=== PATIENT | male | born 1960 | race Caucasian/White ===

== ENCOUNTER 2024-05-06 14:04 | Inpatient (IN) | payer OTHER, SELFPAY ==
[2024-05-06] VITALS (8 sets, daily range): BP systolic 110–149; BP diastolic 60–76; BMI 29.4; BMI 27.6
--- NOTE | 2024-05-06 11:36 | EDRN ---
Jolanta Wesley PA in room w/pt at this time.
--- NOTE | 2024-05-06 12:12 | ED.GENMED ---
History of Present Illness
General
Chief Complaint: Skin Problem
Time Seen by Provider: 05/06/24 11:32
History of Present Illness
History of Present Illness:
64-year-old male with history of prior DVT currently on anticoagulation presents the emergency department for evaluation of worsening left leg swelling. He notes that he had a large blister formed to the leg as the swelling increased and this
blister recently ruptured. He was started on antibiotics earlier this week at urgent care but feels the symptoms are worsening. He reports mild discomfort but no numbness. No fevers or chills.
Review of Systems
Review of Systems
Allergies reviewed?: Yes
All Other Systems: ROS reviewed and negative except as documented in HPI and ROS
Phy Exam
Physical Exam
Physical Exam:
GEN: Well appearing, NAD, WDWN
HEENT: Oral mucosa moist, no scleral icterus
Cardiac: Regular rate
Lung: No respiratory distress, no tachypnea
MSK: No gross deformity or injuries
Skin: Good color, no pallor or jaundice. Severe swelling left lower extremity with copious serous discharge. There is a large superficial ulceration with erythematous tissue at the base, malodorous discharge noted
Neuro: AO x3, moves all extremities freely
Psych: Calm, cooperative
Course
Orders/Labs/Results
Orders:
Orders
05/06/24 11:42
CeFAZolin 2 GRAM [Ancef] 2 grams in 10 ml IV NOW
05/06/24 12:11
Complete Blood Count/With Diff Urgent
05/06/24 12:12
Comprehensive Metabolic Panel Urgent
05/06/24 13:27
Lower Ext Arterial & NIC US [ Perip Art LOWER Ext w NIC] Routine
Comment:
Reason For Exam: bilateral lower extremity wounds
Peripheral Venous Lwr Ext Bilat US [ Perip Venous LOWER Ext Willy] Urgent
Comment:
Reason For Exam: lower extremity edema
05/06/24 13:29
Admit/Transfer Patient As Directed
Co-Sign Provider:
Level of Care: Inpatient admission
Assign to:: Medical/Surgical
Physician / Group: [facility]
Diagnosis: LLE Cellulitis
Reason for Hospitalization: IV abx
Expected length of stay greater than two midnights?: Yes
ELOS- Estimated Length of Stay in days: 3
I certify the patient meets the requirements for IP care: Yes
PRN Pain Medication Management As Directed
May give lesser potent ordered pain med per pt: Yes
preference::
Protocol:: Medication orders for pain may be administered in a
manner that supports deferring to patient preference
when the pt is:
- Requesting an ordered lesser potent pain medication.
Least to most potent pain medications are defined
as: acetaminophen < NSAID < tramadol < opioids
(morphine, oxycodone, hydromorphone).
- Requesting a lesser dose of the same medication IF
ORDERED.
- Requesting a less intrusive route of administration
if both routes are prescribed by the provider (PO <
IV).
05/06/24 13:31
Code Status As Directed
Resuscitation Status: Full Code
Abnormal Lab Results
05/06/24 05/06/24
12:11 12:12
RBC 3.52 L 10^6/uL
(4.70-6.10)
MCV 114.5 H fL
(80.0-94.0)
MCH 41.8 H pg
(27.0-31.0)
Plt Count 91 L 10^3/uL
(130-400)
Absolute Lymphs (auto) 1.1 L 10^3/uL
(1.2-3.4)
Absolute Monos (auto) 0.7 H 10^3/uL
(0.1-0.6)
Immature Gran % 0.7 H %
(0-0.5)
Lymphocytes % 20.0 L %
(20.5-51.1)
Monocytes % 12.1 H %
(1.7-9.3)
Chloride 97 L mmol/L
(98-107)
BUN 6 L mg/dl
(9-20)
Creatinine 0.6 L mg/dL
(0.7-1.3)
Glucose 106 H mg/dl
(70-99)
AST 99 H U/L
(17-59)
ALT 91 H U/L
(0-50)
05/06/24 12:11
05/06/24 12:12
Vital Signs
Initial and Last Documented VS:
Initial Vital Signs
Temp Pulse Resp BP Pulse Ox
98.2 F 82 16 128/74 98
05/06/24 11:16 05/06/24 11:16 05/06/24 11:16 05/06/24 11:16 05/06/24 11:16
Last Documented Vital Signs
Temp Pulse Resp BP Pulse Ox
98.2 F 75 16 110/60 97
05/06/24 11:16 05/06/24 13:17 05/06/24 13:17 05/06/24 13:17 05/06/24 13:17
MDM/Problems Addressed
MDM/Problems Addressed:
Patient with severe lower extremity swelling and cellulitis due to a ulcerated wound, will admit for IV antibiotics and wound consultation
*Critical Care Note
Total Time (30-74mins, 75-104mins- exclusive of procedures): Not Applicable
ED Attending Note
-
Portions of this chart may have been created with voice recognition software.� Occasional wrong word or��sound alike� substitutions may have occurred due to the inherent limitations of voice recognition software.
Discharge Plan
Departure
Patient Disposition: Admit
Date of Disposition: 05/06/24
Time of Disposition: 13:08
Presentation/result/management discussed w/ accepting MD/DO: Hospitalist
Discharge Problem:
Cellulitis of left leg
Prescriptions:
No Action
acetaminophen [Tylenol] 325 mg Tablet
650 mg PO DAILY
levothyroxine [Synthroid] 88 mcg Tablet
88 mcg PO DAILY
cephalexin 500 mg Capsule
500 mg PO QID
Rx Instructions:
FOR 10 DAYS STARTING 05/02/24
Eliquis 5 mg Tablet
5 mg PO BID
Patient Comments:
05/06/24- PATIENT CURRENTLY HAVE BOTTLES FROM HIS NEIGHBOR THAT GAVE THEM TO PATIENT SINCE HE LOST HIS INSURANCE, NO ECW ABOUT START OF MED
Referrals:
Deidre Funk PA-C [Family Provider] -
Interventions
Interventions:
*Risk Screen - Suicide Last Done: 05/06/24 12:00
*General Assessment Last Done: 05/06/24 12:00
*Neglect/Abuse Screening Last Done: 05/06/24 12:00
*ED- Fall Risk Assessment Last Done: 05/06/24 12:00
*ED COVID-19 Vaccine History Last Done: 05/06/24 12:00
ED-Skin Assessment Last Done: 05/06/24 12:00
Discharge Date and Time
Print Language: MONGOLIAN
[2024-05-06] MEDS: ANCEF 10 IV (12:16)
[2024-05-06 12:29] LABS: ALT (SGPT) 91 U/L (0-50); AST (SGOT) 99 U/L (17-59); Albumin 4.6 g/dl (3.5-5.0); Alkaline Phosphatase 70 U/L (38-126); Blood Urea Nitrogen 6 mg/dl (9-20); Calcium 9.2 mg/dl (8.4-10.2); Carbon Dioxide 25 mmol/L (22-30); Chloride 97 mmol/L (98-107); Glucose 106 mg/dl (70-99); Potassium 3.9 mmol/L (3.5-5.1); Sodium 136 mmol/L (135-145); Total Bilirubin 1.3 mg/dl (0.2-1.3); Total Protein 7.1 g/dl (6.3-8.2); eGFR > 60.00
[2024-05-06 12:36] LABS: % Basophils 0.7 % (0-2); % Eosinophils 0.5 % (0-6); % Immature Granulocytes 0.7 % (0-0.5); % Monocytes 12.1 % (1.7-9.3); Absolute Lymphocytes 1.1 10^3/uL (1.2-3.4); Absolute Monocytes 0.7 10^3/uL (0.1-0.6); Absolute Neutrophils 3.7 10^3/uL (1.4-6.5); Hematocrit 40.3 % (39.0-52.0); Hemoglobin 14.7 g/dL (13.0-18.0); Mean Corp Hgb Conc. 36.5 g/dL (33.0-37.0); Mean Corpuscular Hgb 41.8 pg (27.0-31.0); Mean Corpuscular Volume 114.5 fL (80.0-94.0); Nucleated Red Blood Cells % 0 % (-); Red Blood Cell Count 3.52 10^6/uL (4.70-6.10); Red Cell Dist. Width 13.7 % (11.5-14.5); White Blood Cell Count 5.6 10^3/uL (4.8-10.8)
--- NOTE | 2024-05-06 12:38 | WOUNDNOTE ---
SKIN/WOUND Care note: Pt identified by name and . Bilateral lower legs.
R lower anterior leg
R lower lateral leg
R lateral foot
Top of R foot
R medial foot and sole of foot
L medial foot
Top of L foot
Lateral L foot
L lower leg from medial aspect
L lower leg and ankle medial-anterior aspect
L lower leg lateral aspect
L lower leg lateral aspect
[2024-05-06 13:02] LABS: Mean Platelet Volume 9.2 fL (7.4-10.4); Platelet Count 91 10^3/uL (130-400)
--- NOTE | 2024-05-06 13:15 | EDRN ---
Olesya Nesbitt PA in to see pt at thistime.
--- NOTE | 2024-05-06 13:35 | HPS.HSE ---
Family Physician
-
Family Physician: Deidre Funk
Chief Complaint
-
Redness and Swelling of Left Lower Extremity
History of Present Illness
Patient is a64 y/o male past medical history of DVT who presents with redness and swelling of the left lower extremity. Patient reports he developed a large blister on his left leg than burst about a week ago. Over the past weekend (5-6 days ago)
he was walking a lot and noticed a lot of drainage coming from the prior blister site. He went to urgent care on Thursday (4 days ago) at which time he was started cephalexin. He denies fevers, sweats or chills.
Medical History
Past Medical History
Past Medical History: Reports Other
Additional Past Medical History:
Left Lower Extremity DVT
Hypothyroidism
Past Surgical History: Reports Other
Additional Past Surgical History:
Tonsillectomy
Hernia Repair
Social History
Tobacco: Non-smoker
Alcohol: Daily (A few glasses of wine nightly)
Family History
Family History: Not pertinent
Allergies / Home Medications
Allergies reflects when Allergies were last updated in [facility].
Home Medications with original date entered in [facility]
Allergy/Medication List:
Allergies
Allergy/AdvReac Type Severity Reaction Status Date / Time
No Known Allergies Allergy Unverified 05/06/24 11:10
Home Medications
acetaminophen 325 mg tablet (Tylenol) 650 mg PO DAILY 05/06/24
apixaban 5 mg tablet (Eliquis) 5 mg PO BID 05/06/24
cephalexin 500 mg capsule 500 mg PO QID 05/06/24
levothyroxine 88 mcg tablet (Synthroid) 88 mcg PO DAILY 05/06/24
Review of Systems
-
A 12 point ROS was completed and negative except as noted: Yes
Constitutional: Denies Fever or Chills
Respiratory: Denies Cough or Trouble Breathing
Cardiac: Denies Chest Pain or Palpitations
Physical Exam
Vital Signs
Vital Signs
Temp Pulse Resp BP Pulse Ox
98.2 F 75 16 110/60 97
05/06/24 11:16 05/06/24 13:17 05/06/24 13:17 05/06/24 13:17 05/06/24 13:17
Physical Exam
General: Comfortable and Conversant
HEENT: Anicteric and Moist mucous membranes
Respiratory: Clear and Non Labored Respirations
Cardiac: S1/S2 and Regular Rhythm
GI: Soft and Non Tender
Musculoskeletal: No Clubbing, No Cyanosis and Other (Bilateral Lower extremity)
Skin: Other (Bilateral Toes erythematous, left lower extremity moderate erythema, previous blister site wrapped in CRISTOPHER; wound care pictures review)
Neuro: Awake, Alert and Oriented
Psych: Calm
Laboratory Results
-
05/06/24 12:11
05/06/24 12:12
Laboratory Results
Total Bilirubin 1.3 mg/dl (0.2-1.3) 05/06/24 12:12
AST 99 U/L (17-59) H 05/06/24 12:12
ALT 91 U/L (0-50) H 05/06/24 12:12
Alkaline Phosphatase 70 U/L (38-126) 05/06/24 12:12
Data Reviewed
-
Lab Data: Labs Reviewed by me
Impression/Plan
-
Left Lower Extremity Cellulitis, concern for underlying vascular insufficiency
-Transition to Unasyn as patient has been on cephalexin for the past 4 days
-Consult Wound Care
-Check Venous and Arterial US with NIC
Lower Extremity DVT
-Patient reports he is currently getting the Eliquis from a friend
-Hold Eliquis should patient require debridement of wound
Hypothyroidism
-Continue levothyroxine
Alcohol Use Disorder
-Patient reports daily wine
-Continue thiamine and folic acid
-Monitor for symptoms of withdrawal
DVT proph: Lovenox until Eliquis is resumed
Code Status: Full Code
--- NOTE | 2024-05-06 13:44 | W.PN.UPDATE ---
Update Note
Progress Note Update
This is an addendum to the H&P written by Cindy Henley on 05/06/2024.� Patient seen and examined independently with PA.
64-year-old male past medical history of prior DVT left leg inconsistently on Eliquis presenting with left leg swelling with large left calf wound foul-smelling and erythema and swelling of the toes bilaterally.
Labs show transaminitis.�
Concern for potential arterial insufficiency.� Check venous and arterial ultrasound with NIC.� Check wound culture.� Unasyn.� Wound care.� Hold Eliquis for now, pending potential debridement.�
Transaminitis likely secondary to alcohol use/hepatic steatosis.� Continue to monitor.
Alcohol withdrawal protocol.
--- NOTE | 2024-05-06 14:11 | EDRN ---
Due to malodorous wounds that can be noted outside of room w/door closed this RN requested a private room for pt. This RN requested through ED facilities clerk and admissions.
[2024-05-06] MEDS: UNASYN IV ×2 (17:43→23:32)
[2024-05-06] MEDS: LOVENOX 40 MG SC (17:44)
[2024-05-06] MEDS: THIAMINE INJECTION 200 MG IV (20:24)
[2024-05-07] MEDS: SYNTHROID 88 MCG PO (05:25)
[2024-05-07] MEDS: UNASYN IV (05:25)
[2024-05-07 06:25] LABS: Hematocrit 39.8 % (39.0-52.0); Hemoglobin 14.6 g/dL (13.0-18.0); Mean Corp Hgb Conc. 36.7 g/dL (33.0-37.0); Mean Corpuscular Hgb 42.3 pg (27.0-31.0); Mean Corpuscular Volume 115.4 fL (80.0-94.0); Platelet Count 87 10^3/uL (130-400); Red Blood Cell Count 3.45 10^6/uL (4.70-6.10); Red Cell Dist. Width 13.9 % (11.5-14.5); White Blood Cell Count 5.1 10^3/uL (4.8-10.8)
[2024-05-07 06:27] LABS: INR 1.16; PT 15.1 Sec (11.4-14.6)
[2024-05-07 06:28] LABS: APTT 32.7 Sec (23.4-35.0)
[2024-05-07 06:35] LABS: ALT (SGPT) 67 U/L (0-50); AST (SGOT) 68 U/L (17-59); Albumin 3.7 g/dl (3.5-5.0); Alkaline Phosphatase 66 U/L (38-126); Blood Urea Nitrogen 8 mg/dl (9-20); Calcium 8.9 mg/dl (8.4-10.2); Carbon Dioxide 30 mmol/L (22-30); Chloride 100 mmol/L (98-107); Estimated Creatinine Clearance 119 ml/min; GGTP 250 U/L (15-73); Glucose 104 mg/dl (70-99); Magnesium 2.3 mg/dl (1.6-2.3); Phosphorus 3.4 mg/dl (2.5-4.5); Potassium 4.1 mmol/L (3.5-5.1); Sodium 136 mmol/L (135-145); Total Bilirubin 2.3 mg/dl (0.2-1.3); Total Protein 6.3 g/dl (6.3-8.2); eGFR > 60.00
[2024-05-07 07:00] VITALS: BP 124/77
[2024-05-07 08:40] VITALS: BP 134/72; PULSE 71; O2SAT 100
[2024-05-07 08:50] VITALS: BP 134/72; PULSE 76; O2SAT 99
[2024-05-07] MEDS: THIAMINE INJECTION 200 MG IV ×2 (08:57→21:29)
[2024-05-07] MEDS: FOLVITE 1 MG PO (08:57)
--- NOTE | 2024-05-07 10:00 | W.PN.HOSP.TC ---
Today's Communication/Plan
-
See plan above
Assessment / Plan
Assessment / Plan
Left Lower Extremity purulent cellulitis
-Nonseptic criteria but purulence noted with malodor. Await culture data. Broaden antibiotics to vancomycin and cefepime until culture data is available.
-Wound care consult
Bilateral lower extremity edema predisposing to cellulitis
Clinically not in heart failure. No cardiopulmonary diagnosis.
Suspect bilateral venous stasis issues. Check echocardiogram and BNP.
To manage edema will start on Lasix which he is agreeable.
-Arterial ultrasound shows no evidence of PAD
Lower Extremity DVT
-Patient reports he is currently getting the Eliquis from a friend
-Continue with Eliquis
-Patient ultrasound on admission showed no evidence of DVT
Hypothyroidism
-Continue levothyroxine
Alcohol Use Disorder
-Patient reports daily wine
-Continue thiamine and folic acid
-Monitor for symptoms of withdrawal
Mild transaminitis without GI symptoms-patient made aware about LFT abnormality advised to hold alcohol intake and repeat in 2 weeks.
Thrombocytopenia-unknown if acute or chronic. No obvious evidence of external bleeding. Follow for now.
DVT proph: Lovenox until Eliquis is resumed
Code Status: Full Code
Discussed with RN
Total time spent on today's encounter was 52 minutes which included time spent in counseling the patient/family regarding diagnosis and treatment plan as listed above, goals of care, and symptom management. Case was discussed with nursing staff,
specialists, and care coordinators/case management. All labs and imaging personally reviewed by me. Remainder the time spent in detailed review of previous records, lab data, imaging, and other medical provider documentation.
Anticipated Discharge: > 48 hours
Subjective/Interval History
-
Date of Service: May 07, 2024
No fever chills.
Discomfort from the left leg.
No nausea vomiting.
Interval history
Remote history of DVT once but according to recommendation of hematology he was advised to continue with anticoagulation. Patient mention something about some deficiency warranting lifelong anticoagulation. He lost insurance so over the last 2
years he was not using Eliquis. He only went back on it in the last 2 weeks as he found some leftover eliquis bottles. He now has insurance and a new PCP.
Over the last few days he started noticed increasing lower extremity edema. Then he started to see oozing of fluid from the left leg. A blister formed which ruptured in the left leg. He started to have foul smell to the discharge.
Bilateral lower extremity edema seems to be persistent without changes in position. Denies prior history of lung or heart disease.
Admits to having at least couple of glasses of wine every day. He thinks he should cut back and feels sometimes excessive. No prior history of alcohol withdrawal issues including seizures. Denies prior history of liver disease.
Objective Data
-
Labs:
Laboratory Results
05/07/24
05:41
WBC 5.1
Hgb 14.6
Hct 39.8
Plt Count 87 L
PT 15.1 H
INR 1.16
APTT 32.7
Sodium 136
Potassium 4.1
Chloride 100
Carbon Dioxide 30
BUN 8 L
Creatinine 0.7
Glucose 104 H
Calcium 8.9
Total Bilirubin 2.3 H D
AST 68 H
ALT 67 H
Alkaline Phosphatase 66
Vital Signs:
Vital Signs
Temp Pulse Resp BP Pulse Ox
98.6 F 74 16 124/77 97
05/07/24 07:00 05/07/24 07:00 05/07/24 07:00 05/07/24 07:00 05/07/24 07:00
Review of Systems
-
Constitutional: Denies Fever
Respiratory: Denies Trouble Breathing
Cardiac: Denies Chest Pain or Palpitations
Abdomen/GI: Denies Abdominal Pain, Nausea or Vomiting
Neuro: Denies Dizzy
Physical Exam
-
General: Comfortable
HEENT: Moist Mucous Membranes
Respiratory: Non Labored Respirations; Negative Wheezes, Crackles or Accessory Resp Muscle Use
Cardiac: Regular Rhythm and S1/S2; Negative Murmur, JVD or Tachycardic
GI: Soft, Nontender and No Hepatosplenomegaly
Musculoskeletal: Edema, Left Upper Extrem (Superficial open wound on the left lateral mid leg. Malodorous discharge with purulence. The area with redness, tenderness and increased warmth.) and Edema, Right Lower Extrem (Swelling with chronic
stasis changes)
Neuro: AO x 3
Psych: Calm
Data Reviewed
-
Labs: Labs Reviewed by me
--- NOTE | 2024-05-07 10:38 | PHA.VAN.IN ---
Assessment
- Assessment
Renal Function may be Overestimated due to: age
Concomitant Antimicrobials: cefepime
AUC Dosing Plan
- Dosing Variables
Dosing Weight (kg): 94.971
Dosing CrCl (ml/min): 100
Vd coefficient (L/kg): 0.7
- Empiric Dosing
Initial / Loading Dose: 1500mg
Maintenance Regimen: 1500mg q12h
Estimated AUC (mcg*h/mL): 550
Estimated Peak (mcg*h/mL): 34.7
Estimated Trough (mcg/ml): 13.9
Estimated Half Life (H): 7.9
- Monitoring
No levels ordered at this time: consider at steady state
Pharmacokinetics Vancomycin I
- -
Patient Age: 64
Patient Sex: Male
Vancomycin Day #: 1
Indication: Skin And Soft Tissue
Requesting Provider: Dr. Cook
Pertinent Antimicrobial Allergies:
nkda
Height / Weight:
Height 6 ft 1 in
Actual Weight 94.971 kg
IBW in kkg
- Vital Signs / Lab Results
Temp Pulse Resp BP Pulse Ox
98.6 F 74 16 124/77 97
05/07/24 07:00 05/07/24 07:00 05/07/24 07:00 05/07/24 07:00 05/07/24 07:00
Lab Results - Hematology
05/06/24 05/07/24
12:11 05:41
WBC 5.6 5.1
Lab Results - Chemistry
05/06/24 05/07/24
12:12 05:41
BUN 6 L 8 L
Creatinine 0.6 L 0.7
Estimated Creat Clear 119
Albumin 4.6 3.7
[2024-05-07] MEDS: VANCOCIN 530 MG IV ×2 (10:48→21:28)
[2024-05-07] MEDS: LASIX 40 MG PO (10:48)
[2024-05-07 12:11] LABS: NT-proBNP 172 pg/ml
[2024-05-07] MEDS: STERILE WATER FOR INJECTION 10 ML IV ×2 (12:47→21:29)
[2024-05-07] MEDS: MAXIPIME 1000 MG IV ×2 (12:48→21:32)
--- NOTE | 2024-05-07 14:13 | CM ---
MEt with patient who is admitted from home. [facility] [address] to get to it.
He does not use DME, No history of SNF or VNA.
He works for [employer] and has prescription drug benefits now.
He has wound care needs.
He is walking around room.
PLAN: home with f/u at a wound care center.
[2024-05-07 16:44] VITALS: BP 132/75
[2024-05-07] MEDS: ELIQUIS 5 MG PO (21:28)
[2024-05-07 23:00] VITALS: BP 130/71
[2024-05-08] MEDS: SYNTHROID 88 MCG PO (04:28)
[2024-05-08] MEDS: STERILE WATER FOR INJECTION 10 ML IV ×3 (04:28→20:56)
[2024-05-08] MEDS: MAXIPIME 1000 MG IV ×3 (04:28→20:56)
[2024-05-08 04:42] VITALS: BMI 27.1
[2024-05-08 06:50] LABS: Hematocrit 40.2 % (39.0-52.0); Hemoglobin 14.6 g/dL (13.0-18.0); Mean Corp Hgb Conc. 36.3 g/dL (33.0-37.0); Mean Corpuscular Volume 115.5 fL (80.0-94.0); Mean Platelet Volume 8.7 fL (7.4-10.4); Platelet Count 80 10^3/uL (130-400); Red Blood Cell Count 3.48 10^6/uL (4.70-6.10); Red Cell Dist. Width 13.8 % (11.5-14.5); White Blood Cell Count 4.6 10^3/uL (4.8-10.8)
[2024-05-08 06:57] LABS: ALT (SGPT) 55 U/L (0-50); AST (SGOT) 52 U/L (17-59); Albumin 3.8 g/dl (3.5-5.0); Alkaline Phosphatase 62 U/L (38-126); Blood Urea Nitrogen 7 mg/dl (9-20); Calcium 8.8 mg/dl (8.4-10.2); Carbon Dioxide 25 mmol/L (22-30); Chloride 101 mmol/L (98-107); Estimated Creatinine Clearance 119 ml/min; Glucose 103 mg/dl (70-99); Potassium 3.6 mmol/L (3.5-5.1); Sodium 137 mmol/L (135-145); Total Protein 6.3 g/dl (6.3-8.2); eGFR > 60.00
[2024-05-08 07:00] VITALS: BP 116/70
--- NOTE | 2024-05-08 07:45 | PHA.VAN.FU ---
Vancomycin Assessment / Plan
- Assessment
Renal Function: Stable
WBC's are: Trending Down
In the past 24 hrs, patient has been: Afebrile
Concomitant Antimicrobials: CEFEPIME
- Dosing Plan
Continue: 1500MG Q12H
- Monitoring Plan
Peak Level: 05/08 @2100
Trough Level: 05/09 @0530
- Follow Up
Pharmacy will continue to follow.
Vancomycin Follow UP
- -
Patient Age: 64
Patient Sex: Male
Vancomycin Day #: 2
Indication: Skin And Soft Tissue
Requesting Provider: Dr. Cook
Pertinent Antimicrobial Allergies:
nkda
Height / Weight:
Height 6 ft 1 in
Actual Weight 93.043 kg
IBW in kkg
- Vital Signs / Lab Results
Temp Pulse Resp BP Pulse Ox
97.9 F 68 20 130/71 99
05/07/24 23:00 05/07/24 23:00 05/07/24 23:00 05/07/24 23:00 05/07/24 23:00
Lab Results - Hematology
05/06/24 05/07/24 05/08/24
12:11 05:41 06:07
WBC 5.6 5.1 4.6 L
Lab Results - Chemistry
05/06/24 05/07/24 05/08/24
12:12 05:41 06:07
BUN 6 L 8 L 7 L
Creatinine 0.6 L 0.7 0.7
Estimated Creat Clear 119 119
Albumin 4.6 3.7 3.8
Microbiology Results
05/06/24 Unknown Gram Stain - Preliminary
Leg - Left
[2024-05-08] MEDS: THIAMINE INJECTION 200 MG IV ×2 (09:24→20:56)
[2024-05-08] MEDS: FOLVITE 1 MG PO (09:24)
[2024-05-08] MEDS: LASIX 40 MG PO (09:24)
[2024-05-08] MEDS: VANCOCIN 530 MG IV ×2 (09:25→17:52)
[2024-05-08] MEDS: ELIQUIS 5 MG PO ×2 (11:14→20:56)
--- NOTE | 2024-05-08 12:42 | W.PN.HOSP.TC ---
Today's Communication/Plan
-
See note above
Assessment / Plan
Assessment / Plan
Left Lower Extremity purulent cellulitis
-Nonseptic by criteria but purulence noted with malodor. Await culture data. Continue with vancomycin and cefepime until culture data is available.
-Wound care consult
Bilateral lower extremity edema predisposing to cellulitis
Clinically not in heart failure. No cardiopulmonary diagnosis.
Suspect bilateral venous stasis issues. Check echocardiogram and BNP.
Continue with Lasix for edema management
-Arterial ultrasound shows no evidence of PAD
Lower Extremity DVT
-Patient reports he is currently getting the Eliquis from a friend
-Continue with Eliquis
-Patient ultrasound on admission showed no evidence of DVT
Hypothyroidism
-Continue levothyroxine
Alcohol Use Disorder
-Patient reports daily wine
-Continue thiamine and folic acid
-Monitor for symptoms of withdrawal
Mild transaminitis without GI symptoms-patient made aware about LFT abnormality advised to hold alcohol intake . Check ultrasound of the abdomen and hepatitis screen. If negative will hold alcohol for couple of weeks and repeat liver function test.
Thrombocytopenia-unknown if acute or chronic. No obvious evidence of external bleeding. Follow for now.
Diarrhea-new onset-check for C. difficile and norovirus
DVT proph: Lovenox until Eliquis is resumed
Code Status: Full Code
Discussed with RN
Total time spent on today's encounter was 52 minutes which included time spent in counseling the patient/family regarding diagnosis and treatment plan as listed above, goals of care, and symptom management. Case was discussed with nursing staff,
specialists, and care coordinators/case management. All labs and imaging personally reviewed by me. Remainder the time spent in detailed review of previous records, lab data, imaging, and other medical provider documentation.
Anticipated Discharge: > 48 hours
Subjective/Interval History
-
Date of Service: May 08, 2024
Feels his lower extremity edema is getting better with Lasix. He is urinating more.
The left leg pain is also getting better. No fever chills.
The started noticed that his stools are quite frequent especially today. Almost every hour. No nausea vomiting. No abdominal pain.
He tells me that is going to quit alcohol going forward to improve his health.
Objective Data
-
Labs:
Laboratory Results
05/08/24
06:07
WBC 4.6 L
Hgb 14.6
Hct 40.2
Plt Count 80 L
Sodium 137
Potassium 3.6
Chloride 101
Carbon Dioxide 25
BUN 7 L
Creatinine 0.7
Glucose 103 H
Calcium 8.8
Total Bilirubin 2.0 H
AST 52
ALT 55 H
Alkaline Phosphatase 62
Vital Signs:
Vital Signs
Temp Pulse Resp BP Pulse Ox
97.9 F 69 18 116/70 100
05/08/24 07:00 05/08/24 07:00 05/08/24 07:00 05/08/24 07:00 05/08/24 07:00
I&O
05/07/24 05/08/24 05/09/24
06:59 06:59 06:59
Intake Total 1080 / 1080
Balance 1080 / 1080
Review of Systems
-
Constitutional: Denies Fever
Respiratory: Denies Trouble Breathing
Cardiac: Denies Chest Pain
Abdomen/GI: Reports Diarrhea; Denies Abdominal Pain, Nausea or Vomiting
Neuro: Denies Dizzy
Physical Exam
-
General: No Apparent Distress
Respiratory: Non Labored Respirations; Negative Accessory Resp Muscle Use
GI: Soft and Nontender
Musculoskeletal: Edema, Right Lower Extrem (Improved) and Edema, Left Lower Extrem (Interesting)
Neuro: AO x 3
Psych: Calm
Data Reviewed
-
Labs: Labs Reviewed by me
[2024-05-08 15:00] VITALS: BP 106/70
[2024-05-08] MEDS: IMODIUM 2 MG PO (17:53)
[2024-05-08] MEDS: VISBIOME 1 CAP PO (17:54)
[2024-05-08 23:37] VITALS: BP 120/69
[2024-05-09] MEDS: STERILE WATER FOR INJECTION 10 ML IV ×2 (05:10→12:21)
[2024-05-09] MEDS: VANCOCIN 530 MG IV (05:10)
[2024-05-09] MEDS: SYNTHROID 88 MCG PO (05:10)
[2024-05-09] MEDS: MAXIPIME 1000 MG IV ×2 (05:10→12:21)
[2024-05-09 06:00] VITALS: BMI 26.8
[2024-05-09 06:38] LABS: Vancomycin Trough 15.6 ug/ml (5-20)
[2024-05-09 07:27] VITALS: BP 119/71
[2024-05-09] MEDS: VISBIOME 1 CAP PO (07:47)
[2024-05-09] MEDS: ELIQUIS 5 MG PO (07:47)
[2024-05-09] MEDS: LASIX 40 MG PO (07:48)
[2024-05-09] MEDS: FOLVITE 1 MG PO (07:48)
[2024-05-09] MEDS: THIAMINE INJECTION 200 MG IV (07:48)
[2024-05-09 08:48] LABS: % Basophils 0.9 % (0-2); % Eosinophils 1.3 % (0-6); % Immature Granulocytes 0.7 % (0-0.5); % Lymphocytes 23.5 % (20.5-51.1); % Monocytes 10.4 % (1.7-9.3); % Neutrophils 63.2 % (42.2-75.2); Absolute Basophils 0.1 10^3/uL (0-0.2); Absolute Eosinophils 0.1 10^3/uL (0-0.7); Absolute Lymphocytes 1.3 10^3/uL (1.2-3.4); Absolute Monocytes 0.6 10^3/uL (0.1-0.6); Absolute Neutrophils 3.5 10^3/uL (1.4-6.5); Hematocrit 41.4 % (39.0-52.0); Mean Corp Hgb Conc. 36.2 g/dL (33.0-37.0); Mean Platelet Volume 9.2 fL (7.4-10.4); Nucleated Red Blood Cells % 0 % (-); Platelet Count 96 10^3/uL (130-400); Red Blood Cell Count 3.57 10^6/uL (4.70-6.10); Red Cell Dist. Width 13.4 % (11.5-14.5); White Blood Cell Count 5.6 10^3/uL (4.8-10.8)
[2024-05-09] MEDS: IMODIUM 2 MG PO (09:13)
[2024-05-09 10:10] LABS: ALT (SGPT) 52 U/L (0-50); AST (SGOT) 58 U/L (17-59); Albumin 3.7 g/dl (3.5-5.0); Alkaline Phosphatase 59 U/L (38-126); Blood Urea Nitrogen 8 mg/dl (9-20); Calcium 9.3 mg/dl (8.4-10.2); Carbon Dioxide 22 mmol/L (22-30); Estimated Creatinine Clearance 119 ml/min; Glucose 92 mg/dl (70-99); Potassium 4.2 mmol/L (3.5-5.1); Sodium 137 mmol/L (135-145); Total Bilirubin 1.5 mg/dl (0.2-1.3); Total Protein 6.3 g/dl (6.3-8.2); eGFR > 60.00
[2024-05-09 11:46] LABS: Chloride 110 mmol/L (98-107)
--- NOTE | 2024-05-09 12:09 | W.PN.HOSP.TC ---
Addendum entered and electronically signed by Servando Bowden MD 05/09/24 14:15:
Echocardiogram with preserved EF. Discussed with patient and he is currently feeling better. Will transition to p.o. Augmentin at discharge. Patient will follow-up closely with PCP outpatient.
Time of discharge 36 minutes
Original Note:
Today's Communication/Plan
-
monitor vitals
see plan
cw abx
echo
possible dc later today if echo normal
Assessment / Plan
Assessment / Plan
Left Lower Extremity purulent cellulitis
-Nonseptic by criteria but purulence noted with malodor. cx data no growth. switch to Po abx
-Wound care consult; should follow up outpatient
Bilateral lower extremity edema predisposing to cellulitis
Clinically not in heart failure. No cardiopulmonary diagnosis.
Suspect bilateral venous stasis issues. Check echocardiogram pending; BNP not much elevated
Continue with Lasix for edema management
-Arterial ultrasound shows no evidence of PAD
Lower Extremity DVT
-Patient reports he is currently getting the Eliquis from a friend
-Continue with Eliquis
-Patient ultrasound on admission showed no evidence of DVT
Hypothyroidism
-Continue levothyroxine
Alcohol Use Disorder
-Patient reports daily wine
-Continue thiamine and folic acid
-Monitor for symptoms of withdrawal
Mild transaminitis without GI symptoms-patient made aware about LFT abnormality advised to hold alcohol intake . Ultrasound abdomen with fatty liver disease
Thrombocytopenia-unknown if acute or chronic. No obvious evidence of external bleeding. Follow for now.
Diarrhea-new onset- C. difficile and norovirus neg
improving
DVT proph: Eliquis
Code Status: Full Code
General: No Apparent Distress
Respiratory: Non Labored Respirations; Negative Accessory Resp Muscle Use
GI: Soft and Nontender
Musculoskeletal: Edema, Right Lower Extrem and Edema, Left Lower Extrem
Neuro: AO x 3
Psych: Calm
Anticipated Discharge: Today
Subjective/Interval History
-
Date of Service: May 09, 2024
denies pain
Objective Data
-
Labs:
Laboratory Results
05/09/24
07:59
WBC 5.6
Hgb 15.0
Hct 41.4
Plt Count 96 L
Sodium 137
Potassium 4.2
Chloride 110 H
Carbon Dioxide 22
BUN 8 L
Creatinine 0.7
Glucose 92
Calcium 9.3
Total Bilirubin 1.5 H
AST 58
ALT 52 H
Alkaline Phosphatase 59
Vital Signs:
Vital Signs
Temp Pulse Resp BP Pulse Ox
98.4 F 64 18 119/71 99
05/09/24 07:27 05/09/24 07:27 05/09/24 07:27 05/09/24 07:27 05/09/24 07:27
I&O
05/08/24 05/09/24 05/10/24
06:59 06:59 06:59
Intake Total 1080 / 1080 1620 / 1620
Balance 1080 / 1080 1620 / 1620
--- NOTE | 2024-05-09 12:28 | WOUNDNOTE ---
L LATERAL LOWER LEG
--- NOTE | 2024-05-09 12:29 | WOUNDNOTE ---
L LATERAL FOOT AND TOES
--- NOTE | 2024-05-09 12:30 | WOUNDNOTE ---
WON RN note: Patient admitted with cellulitis of L leg
See H&P for complete history. Lives alone, works full stack java developer.
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
Wound Location and type/assessment: Patient admitted with: L lateral lower leg with open large blister, pink base no odor after cleaning. Wound culture pending, + palpable pedal pulses. Compared to pictures of legs taken in ER, legs look improved.
R leg maldonado wound has healed, scabbed dorsal toes. L lateral foot with blanchable redness and plantar surface with small scab, no drainage. Patient admitted that he can't reach feet to wash properly. Poor hygiene evident and toe nails jagged.
Hemosiderin staining both legs and +1 edema to L leg. Student nurse assisted.
Appetite: Good.
Pressure redistribution devices in place: Accumax, patient is ad lara.
Plan: Moisturized legs with Vaseline after bathing legs and feet, mineral oil ordered. For L leg applied Vashe soak for 5 minutes then Xeroform and dry dressing with gricel wrap knee high. ABD pad placed over L lateral foot and plantar under gricel wrap.
Teaching done with patient regarding hygiene, wound care and compression. Patient states he has compression stockings at home that he can manage on his own. Encouraged patient to wash legs and feet daily then moisturize and elevate legs when
sitting. Will confirm orders with hospitalist and updated nurse.
Updated care plan and will follow as needed.
Note to case management of equipment requested for discharge: None.
Recommend follow up at wound care center upon discharge.
--- NOTE | 2024-05-09 14:22 | W.DCSUMMARY ---
Discharge Summary
Discharge Data
Date of Admission: 05/06/24
Date of Discharge: 05/09/24
-
Pending Results: No
Hospital Course
64-year-old male with past medical history of lower extremity DVT, hypothyroidism, alcohol use disorder came to the hospital with left lower extremity cellulitis. Patient did had some also on admission wound culture was done which initially did not
grow any bacteria. There was another culture that grew rare gram-negative rods and gram-positive cocci. Patient symptoms continue to improve on IV antibiotic which was later transitioned to p.o. Augmentin prior to discharge. He did had lower
extremity edema which was likely thought was secondary to bilateral venous stasis. Echocardiogram was done which showed preserved ejection fraction. BNP was also done which was not elevated. Patient also had mild transaminitis the ultrasound of
the abdomen was consistent with fatty liver disease. Once patient symptoms continue to improve, he was then discharged home with instructions to follow-up closely with all his physicians outpatient and to follow-up with wound care center outpatient.
Discharge Plan
-
Patient Disposition: Home (Routine Discharge)
Discharge Diagnosis/Procedures: Cellulitis
Lower extremity edema
Suspect venous insufficiency
Diet: As tolerated
Activity: As tolerated
Driving Restrictions: As prior to admission
Bathing Restrictions: None
Blood Work: BMP later this week or next week with primary care provider
Activity Restrictions/Additional Instructions:
Wound Care Instructions
L lateral leg: Can shower wash with soap and water, soak with Vashe on gauze for 5 minutes then remove and apply Xeroform, (*alginate if increased drainage), ABD pad and kerlix daily and prn drainage.
Mineral oil to legs and feet daily after bathing feet with soap and water
compression stocking knee high that have at home, apply in morning and remove at evening upon bedtime.
When sitting elevate legs
increase protein in diet
Follow up at wound care center call for an appointment.
Referrals:
Deidre Funk PA-C [Family Provider] - in less than 1 week
Prescriptions:
New
white petrolatum [Hydrophor] 42 % Ointment
1 applic topical DAILY Qty: 454 0RF
Lactobac/Bifidobac [Visbiome]
1 cap PO DAILY Qty: 0 0RF
amoxicillin-pot clavulanate 875-125 mg tablet
1 tab PO BID Qty: 16 0RF
Continued
acetaminophen [Tylenol] 325 mg Tablet
650 mg PO DAILY
levothyroxine [Synthroid] 88 mcg Tablet
88 mcg PO DAILY
Eliquis 5 mg Tablet
5 mg PO BID
Patient Comments:
05/06/24- PATIENT CURRENTLY HAVE BOTTLES FROM HIS NEIGHBOR THAT GAVE THEM TO PATIENT SINCE HE LOST HIS INSURANCE, NO ECW ABOUT START OF MED
Discontinued
cephalexin 500 mg Capsule
500 mg PO QID
Rx Instructions:
FOR 10 DAYS STARTING 05/02/24
Discharge Orders:
Discharge Patient (As Directed); Ordered 05/09/24
Ordered By: Servando Bowden
Discharge Date and Time
Discharge Date/Time: 05/09/24 17:56
Print Language: NIUEAN
--- NOTE | 2024-05-09 15:45 | PHA.VAN.FU ---
Vancomycin Assessment / Plan
- Assessment
Renal Function: Stable
WBC's are: WNL
In the past 24 hrs, patient has been: Afebrile
Concomitant Antimicrobials: cefepime
- Assessment - Trough Based Monitoring
Trough Value: 15.6
Peak was not drawn
Trough appeared to be drawn after dose was administered based on scan times - Discussed with adjunct nursing faculty and phlebotomy stated the level was collected before vancomycin infusion was actually started thus trough was collected before the dose
Trough drawn ~11.5H after previous dose
Difficult to assess trough without the peak (unable to determine AUC & half-life)
- Dosing Plan
Continue: Vanc 1500mg Q12H
- Monitoring Plan
Trough Level: 05/10 05:30 - if not discharged
Discharge plans noted and patient to be discharged on amoxicillin/clavulanate
Will hold off on dose adjustments at this time - repeat trough to assess for accumulation
- Follow Up
Pharmacy will continue to follow.
Vancomycin Follow UP
- -
Patient Age: 64
Patient Sex: Male
Vancomycin Day #: 3
Indication: Skin And Soft Tissue
Requesting Provider: Dr. Cook
Pertinent Antimicrobial Allergies:
nkda
Height / Weight:
Height 6 ft 1 in
Actual Weight 92.164 kg
IBW in kkg
- Vital Signs / Lab Results
Temp Pulse Resp BP Pulse Ox
98.4 F 64 18 119/71 99
05/09/24 07:27 05/09/24 07:27 05/09/24 07:27 05/09/24 07:27 05/09/24 07:27
Lab Results - Hematology
05/07/24 05/08/24 05/09/24
05:41 06:07 07:59
WBC 5.1 4.6 L 5.6
Lab Results - Chemistry
0305/08/24 05/09/24
05:41 06:07 07:59
BUN 8 L 7 L 8 L
Creatinine 0.7 0.7 0.7
Estimated Creat Clear 119 119 119
Albumin 3.7 3.8 3.7
Microbiology Results
05/06/24 Unknown Wound Culture - Preliminary
Leg - Left Gram negative bacilli
Staphylococcus species
Gram Stain - Preliminary
05/08/24 12:00 Wound Culture - Preliminary
Leg - Left No growth
Gram Stain - Preliminary
05/08/24 11:20 C. difficile GDH Antigen & Toxins - Final
Feces/Stool Negative for toxigenic C.difficile
- Final
Negative for Norovirus GI and GII.
05/06/24 18:02 MRSA Screen - Final
Nose No Methicillin Resistant Staphylococcus aureus isolated.
Therapeutic Drug Monitoring
Vancomycin Peak Cancelled 05/08/24 21:00
Vancomycin Trough 15.6 ug/ml (5-20) 05/09/24 05:21
[2024-05-09 16:07] VITALS: BP 113/67
[2024-05-09 18:42] LABS: Hepatitis C Antibody Negative (Negative)
[2024-05-09 19:08] LABS: Hepatitis B Surface Antigen Negative (Negative)
[2024-05-09 19:25] LABS: Hepatitis B Surface Antibody Negative
== END 2024-05-09 17:56 | disposition home or self-care (01) | DRG 603 ==
LOC: 3 WEST ACU 14:04
PROVIDERS: Internal Medicine; Physician Assistant; Physician Assistant Medical; ADMITTING PHYSICIAN Hospitalist; ATTENDING PHYSICIAN Internal Medicine; EMERGENCY PHYSICIAN Emergency Medicine; FAMILY PHYSICIAN Physician Assistant
DX: L03.116 Cellulitis of left lower limb (principal); I87.2 Venous insufficiency (chronic) (peripheral); E03.9 Hypothyroidism, unspecified; I87.8 Other specified disorders of veins; D69.6 Thrombocytopenia, unspecified; K76.0 Fatty (change of) liver, not elsewhere classified; F10.10 Alcohol abuse, uncomplicated; R19.7 Diarrhea, unspecified; Z86.718 Personal history of other venous thrombosis and embolism; Z79.890 Hormone replacement therapy; Z79.01 Long term (current) use of anticoagulants
CPT/HCPCS: 76700; 80053; 80202; 82977; 83735; 83880; 84100; 85025; 85027; 85610; 85730; 86706; 86803; 87070; 87077; 87147; 87205; 87324; 87340; 87449; 87798; 93306; 93922; 93925; 93970; 97162; 97166; 99285

== ENCOUNTER → 2024-05-20 07:56 | Outpatient (REF) | payer OTHER, SELFPAY | LOC: WOUND 07:56 | PROVIDERS: ATTENDING PHYSICIAN Surgery; FAMILY PHYSICIAN Physician Assistant | DX: I87.312 Chronic venous hypertension (idiopathic) with ulcer of left lower extremity (principal); L97.929 Non-pressure chronic ulcer of unspecified part of left lower leg with unspecified severity; I87.2 Venous insufficiency (chronic) (peripheral); Z79.01 Long term (current) use of anticoagulants | CPT/HCPCS: 99203 ==

== ENCOUNTER 2024-09-21 23:59 | Inpatient (IN) | payer OTHER, MEDICARE, SELFPAY ==
[2024-09-21 18:52] VITALS: BP 131/80
[2024-09-21 19:16] LABS: Hematocrit 43.0 % (39.0-52.0); Hemoglobin 15.7 g/dL (13.0-18.0); Mean Corp Hgb Conc. 36.5 g/dL (33.0-37.0); Mean Corpuscular Volume 111.7 fL (80.0-94.0); Nucleated Red Blood Cells % 0 % (-); Platelet Count 227 10^3/uL (130-400); Red Cell Dist. Width 15.3 % (11.5-14.5)
[2024-09-21 19:38] LABS: ALT (SGPT) 28 U/L (0-50); AST (SGOT) 33 U/L (17-59); Albumin 4.4 g/dl (3.5-5.0); Alkaline Phosphatase 79 U/L (38-126); Blood Urea Nitrogen 3 mg/dl (9-20); Calcium 8.9 mg/dl (8.4-10.2); Carbon Dioxide 22 mmol/L (22-30); Chloride 103 mmol/L (98-107); Glucose 98 mg/dl (70-99); Potassium 4.1 mmol/L (3.5-5.1); Sodium 139 mmol/L (135-145); Total Protein 7.6 g/dl (6.3-8.2); eGFR > 60.00
[2024-09-21 20:55] VITALS: BP 118/72
[2024-09-21 21:00] VITALS: BP 123/73; BMI 26.0
--- NOTE | 2024-09-21 21:29 | ED.GENMED ---
History of Present Illness
General
Chief Complaint: Skin Problem
Source: patient
Exam Limitations: none
Time Seen by Provider: 09/21/24 21:06
History of Present Illness
History of Present Illness:
64yoM with a history of DVT on Eliquis and hypothyroidism presenting for evaluation of foot redness and swelling. Symptoms began about a week ago. He took his compression stockings off last week after wearing them for 2 weeks. He noticed that
both of his feet were red and swollen. He also noticed a wound to the bottom of his right foot. He went to urgent care today and was sent to the ED for evaluation. He is otherwise feeling well and denies any fevers or chills. Of note, patient
was hospitalized in April 2024 for cellulitis of the left leg.
Phy Exam
General Physical Exam
General Presentation: no apparent distress
General Skin: warm and dry
General Habitus: normal
General Mental: alert
ENT Exam
ENT Exam: normocephalic
Pulmonary Exam
Pulmonary Exam: no respiratory distress
Neurological Exam
Neurological Exam: alert
Barbara Coma Scale
Eye Opening: Spontaneous
Verbal Response: Oriented
Motor Response: Obeys Commands
GCS Total Score: 15
Skin Exam
Skin Exam: warm/dry and other (Erythema and edema noted to both feet with poor hygiene. There is an ulceration noted to the R hallux with significant malodor. No crepitus or tenderness. Strong DP doppler signals bilaterally. Chronic venous stasis
changes noted. )
Psychiatric Exam
Psychiatric Exam: normal mood/affect
Course
Orders/Labs/Results
Orders:
Orders
09/21/24 19:06
C-Reactive Protein Urgent
Comment: ADDON
Complete Blood Count/With Diff Urgent
Comprehensive Metabolic Panel Urgent
Erythrocyte Sed Rate Urgent
Comment: ADDON
Lactate Level [Lactic Acid] Q4H
Blood Culture Urgent
AURE Source: Blood/Venous
Specimen Description:
09/21/24 21:15
Lactate Level [Lactic Acid] Q4H
Blood Culture Routine
AURE Source: Blood/Venous
Specimen Description:
09/21/24 21:26
Add On- LAB Urgent
Tests Added?: ESR/CRP
CR Foot - Right Min 3 Views Urgent
Comment:
Reason For Exam: wound
09/21/24 21:28
0.9% Sodium Chloride 1000 ml [Nss] 1,000 ml IV BOLUS
Piperacillin/Tazo 4.5 Gram [Zosyn] 4.5 gram in 100 ml IV NOW
09/21/24 21:33
CR Foot - Left Min 3 Views Urgent
Comment:
Reason For Exam: wounds
09/21/24 21:50
Vancomycin [Vancocin] 2,000 mg 0.9% Sodium Chloride 500 ml [Nss] 500 ml IV NOW
09/21/24 21:57
0.9% Sodium Chloride 1000 ml [Nss] 1,000 ml IV BOLUS
09/21/24 22:09
Wound Culture [Wound/Abscess/Other Culture] Urgent
AURE Source: Foot
Specimen Description: Right
Date Specimen was Collected: 09/21/24
Time Specimen was Collected: 21:51
09/21/24 22:55
CT Lower Ext W/iv Cont Rt Stat
Comment:
Reason For Exam: cellulitis, high lactate, eval fasciitis
09/21/24 22:57
Admit/Transfer Patient As Directed
Co-Sign Provider:
Level of Care: Inpatient admission
Assign to:: Medical/Surgical
Physician / Group: Caron
Diagnosis: infected foot ulcer
Reason for Hospitalization: infected foot ulcer
Expected length of stay greater than two midnights?: Yes
ELOS- Estimated Length of Stay in days: 2
I certify the patient meets the requirements for IP care: Yes
09/21/24 22:58
PRN Pain Medication Management As Directed
May give lesser potent ordered pain med per pt: Yes
preference::
Protocol:: Medication orders for pain may be administered in a
manner that supports deferring to patient preference
when the pt is:
- Requesting an ordered lesser potent pain medication.
Least to most potent pain medications are defined
as: acetaminophen < NSAID < tramadol < opioids
(morphine, oxycodone, hydromorphone).
- Requesting a lesser dose of the same medication IF
ORDERED.
- Requesting a less intrusive route of administration
if both routes are prescribed by the provider (PO <
IV).
09/21/24 22:59
Code Status As Directed
Resuscitation Status: Full Code
Abnormal Lab Results
09/21/24 09/21/24
19:06 21:15
RBC 3.85 L 10^6/uL
(4.70-6.10)
MCV 111.7 H fL
(80.0-94.0)
MCH 40.8 H pg
(27.0-31.0)
RDW 15.3 H %
(11.5-14.5)
Abs Immat Gran (auto) 0.2 H 10^3/uL
(0-0.05)
Absolute Monos (auto) 0.8 H 10^3/uL
(0.1-0.6)
Immature Gran % 1.7 H %
(0-0.5)
ESR 22 H mm/hour
(0-20)
BUN 3 L mg/dl
(9-20)
Creatinine 0.6 L mg/dL
(0.7-1.3)
Lactic Acid 2.9 H mmol/L 4.1 H* mmol/L
(0.7-2.0) (0.7-2.0)
C-Reactive Protein 23.30 H mg/L
(0.0-10.00)
09/21/24 19:06
09/21/24 19:06
Vital Signs
Initial and Last Documented VS:
Initial Vital Signs
Temp Pulse Resp BP Pulse Ox
98.1 F 89 16 131/80 96
09/21/24 18:52 09/21/24 18:52 09/21/24 18:52 09/21/24 18:52 09/21/24 18:52
Last Documented Vital Signs
Temp Pulse Resp BP Pulse Ox
98.5 F 97 18 129/76 100
09/22/24 00:38 09/22/24 00:38 09/22/24 00:38 09/22/24 00:38 09/22/24 00:38
MDM/Problems Addressed
Differential Diagnosis Includes:
64yoM here with bilateral foot redness and swelling x 1 week. No f/c. VSS. He is non-toxic appearing. There is evidence of cellulitis on exam. Ulceration noted to R hallux with significant malodor. No crepitus. Differential diagnosis includes but
is not limited to: Cellulitis, osteomyelitis, doubt NSTI
Initial ED plan: Labs initiated in triage. White count normal. Lactate 2.9. Will add on ESR/CRP and bilateral foot x-rays. IV vancomycin and Zosyn ordered. Patient will require hospitalization for podiatry consult and likely MRI.
*Pulse Oximetry
SaO2: 96
Oxygen Mode of Delivery: Room air
Patient hypoxic: no (96%)
*Critical Care Note
Total Time (30-74mins, 75-104mins- exclusive of procedures): Not Applicable
ED Attending Note
-
Portions of this chart may have been created with voice recognition software.� Occasional wrong word or��sound alike� substitutions may have occurred due to the inherent limitations of voice recognition software.
Discharge Plan
Departure
Patient Disposition: Admit
Date of Disposition: 09/21/24
Time of Disposition: 22:30
Presentation/result/management discussed w/ accepting MD/DO: Hospitalist
Discharge Problem:
Cellulitis of foot
Interventions
Interventions:
*Risk Screen - Suicide Last Done: 09/21/24 20:58
*General Assessment Last Done: 09/21/24 20:58
*Neglect/Abuse Screening Last Done: 09/21/24 20:58
*ED- Fall Risk Assessment Last Done: 09/21/24 20:58
*ED COVID-19 Vaccine History Last Done: 09/22/24 00:38
*Nursing Disposition Last Done: 09/22/24 00:15
ED-Skin Assessment Last Done: 09/21/24 22:25
Discharge Date and Time
Discharge Date/Time: 09/22/24 00:27
[2024-09-21 22:02] VITALS: BP 130/74
[2024-09-21] MEDS: NSS 1000 IV ×2 (22:03→23:33)
[2024-09-21] MEDS: ZOSYN 100 IV (22:04)
[2024-09-21 22:20] LABS: C-Reactive Protein 23.30 mg/L (0.0-10.00)
[2024-09-21 22:28] VITALS: BP 122/66
--- NOTE | 2024-09-21 22:37 | HPS.HSE ---
Family Physician
-
Family Physician: NOT KNOW UNKNOWN - PT DOES
Chief Complaint
-
Cellulitis
History of Present Illness
This is a 64-year-old male with past medical history significant for hypothyroid, DVT on anticoagulation, history of cellulitis who presents to the Emergency Department with bilateral foot swelling.
Patient reports he has a history of venous insufficiency and does wear compression stockings. He has kept them on for about 2 weeks without taking them off while sleeping. He started having some pain in his left foot. He then took off his
compression socks and realized that he had an open wound and redness and swelling. He does note that days right foot is also swollen but has no tenderness or pain there. He applied topical ointment but he had no improvement. The wound started to
drain and he was seen at urgent care today. Sent to the emergency department for evaluation.
His lower extremity swelling was evaluated when he was seen here in April. At that time he had normal EF on echocardiogram and his BNP was normal. His DVT study was negative. He has continued to remain on Eliquis due to history of unprovoked
unprovoked DVT.
Patient drinks 3 glasses of wine daily. Denies history of withdrawal.
In the emergency department he was afebrile, his blood pressure was 122/68 with a pulse of 76 and he was satting 98% on room air. He has a white count of 8.6, hemoglobin 15.7 platelets 227. His electrolytes were normal. BUN/creatinine were
normal. Glucose was normal.
Chest x-ray shows bilateral soft tissue swelling without any foreign body. Does not appear to be any bony involvement.
CRP was 23, ESR is pending
Medical History
Past Medical History
Past Medical History: Reports Other
Additional Past Medical History:
Left Lower Extremity DVT
Hypothyroidism
Past Surgical History: Reports Other
Additional Past Surgical History:
Tonsillectomy
Hernia Repair
Social History
Tobacco: Non-smoker
Alcohol: Daily (A few glasses of wine nightly)
Family History
Family History: Not pertinent
Allergies / Home Medications
Allergies reflects when Allergies were last updated in [facility].
Home Medications with original date entered in [facility]
Allergy/Medication List:
Allergies
Allergy/AdvReac Type Severity Reaction Status Date / Time
No Known Allergies Allergy Unverified 05/06/24 11:10
Home Medications
acetaminophen 325 mg tablet (Tylenol) 650 mg PO DAILY 05/06/24
apixaban 5 mg tablet (Eliquis) 5 mg PO BID 05/06/24
cephalexin 500 mg capsule 500 mg PO QID 05/06/24
levothyroxine 88 mcg tablet (Synthroid) 88 mcg PO DAILY 05/06/24
Review of Systems
-
A 12 point ROS was completed and negative except as noted: Yes
Constitutional: Denies Fever or Chills
Respiratory: Denies Cough or Trouble Breathing
Cardiac: Denies Chest Pain or Palpitations
Skin: Reports Rash and Other
Physical Exam
Vital Signs
Vital Signs
Temp Pulse Resp BP Pulse Ox
98.4 F 76 23 122/66 99
09/21/24 22:28 09/21/24 22:28 09/21/24 22:28 09/21/24 22:28 09/21/24 22:28
Physical Exam
General: Comfortable and Conversant
HEENT: Anicteric and Moist mucous membranes
Respiratory: Clear and Non Labored Respirations
Cardiac: S1/S2 and Regular Rhythm
GI: Soft and Non Tender
Musculoskeletal: No Clubbing, No Cyanosis and Other (Bilateral Lower extremity)
Skin: Other (Bilateral Toes erythematous, left lower extremity moderate erythema, Right lower extremity with significant erythema and some edema, wound with purulent drainage just proximal to the great toe on the right. )
Neuro: Awake, AO x 3 and Nonfocal/grossly intact
Psych: Calm
Laboratory Results
-
09/21/24 19:06
09/21/24 19:06
Laboratory Results
Lactic Acid 4.1 mmol/L (0.7-2.0) H* 09/21/24 21:15
Total Bilirubin 1.3 mg/dl (0.2-1.3) 09/21/24 19:06
AST 33 U/L (17-59) 09/21/24 19:06
ALT 28 U/L (0-50) 09/21/24 19:06
Alkaline Phosphatase 79 U/L (38-126) 09/21/24 19:06
Data Reviewed
-
Diagnostic Radiology: Image Personally Visualized and interpreted
Lab Data: Labs Reviewed by me
Old Records: Reviewed
Impression/Plan
-
IMPRESSION:
64-year-old with past medical history of venous insufficiency hypothyroid and DVT who presents to the emergency department with purulent draining wound in this left lower extremity with bilateral lower extremity erythema and elevated lactic acid of
4.1. He has a foul-smelling opening to the wound. It is slightly tender to palpation erythematous and edematous. Suspect this wound is secondary to blisters from lower extremity swelling. Patient has no history of diabetes. His CRP is only
slightly increased. ESR is pending. X-ray shows no subcutaneous foreign body, fluid collection or bony involvement. Pedal pulses are intact.
PLAN:
1. Cellulitis of the foot. -Does have elevated lactic acid but does not appear to have fasciitis at this time.
- admit to med/surg
- blood cultures
- IV vancomycin for now
- CT of the right foot with IV contrast to rule out fasciitis
- ID consult
- Will consult Podiatry pending CT findings
- ostomy consult
- check mrsa
DVT PPX - on chronic ac with eliquis for unprovoked DVT
Code status - Full Code
[2024-09-21] MEDS: VANCOCIN 540 MG IV (22:39)
[2024-09-21 23:00] VITALS: BP 127/69
[2024-09-21] MEDS: NSS IV (23:31)
[2024-09-22] VITALS: BP 122/68
[2024-09-22 00:34] VITALS: BMI 27.1
[2024-09-22 00:38] VITALS: BP 129/76
--- NOTE | 2024-09-22 02:01 | PTCARENOTE ---
Pt arrived to unit from ED on stretcher at 0020. Pt pulled over to bed, bed alarm in place & working. Pt reports consuming at least 3 drinks per day, per pt no hx of withdrawal that they can remember. Pt had on 3 soiled briefs. Briefs were removed
and pt was educated on importance of maintaining skin integrity. Pt was agreeable to using urinal & bedpan this shift. Wound care performed on B/L LE-See Wound Management Intervention & Skin Breakdown Management Intervention. C Nurse consulted.
Bed in lowest position & locked, call shannon within reach. Pt reports no needs at this time.
[2024-09-22] MEDS: NSS 1000 IV (02:36)
[2024-09-22] MEDS: SYNTHROID 88 MCG PO (05:30)
[2024-09-22 06:00] VITALS: BMI 27.2
[2024-09-22 07:00] VITALS: BP 111/65
[2024-09-22 08:07] LABS: Hematocrit 38.5 % (39.0-52.0); Hemoglobin 13.8 g/dL (13.0-18.0); Mean Corp Hgb Conc. 35.8 g/dL (33.0-37.0); Mean Corpuscular Volume 112.9 fL (80.0-94.0); Platelet Count 194 10^3/uL (130-400); Red Cell Dist. Width 15.0 % (11.5-14.5)
[2024-09-22 08:35] LABS: Blood Urea Nitrogen 5 mg/dl (9-20); Calcium 8.4 mg/dl (8.4-10.2); Carbon Dioxide 24 mmol/L (22-30); Chloride 107 mmol/L (98-107); Estimated Creatinine Clearance > 125 ml/min; Glucose 110 mg/dl (70-99); Magnesium 2.1 mg/dl (1.6-2.3); Potassium 4.0 mmol/L (3.5-5.1); Sodium 136 mmol/L (135-145); eGFR > 60.00
[2024-09-22] MEDS: ELIQUIS 5 MG PO (08:38)
--- NOTE | 2024-09-22 08:40 | PHA.VAN.IN ---
Addendum entered and electronically signed by Erica Enriquez [facility] 09/22/24 11:31:
Agree with assessment and plan
Original Note:
Assessment
- Assessment
Renal Function: Appears similar to baseline
- Previous Dosing Experience
Previous Regimen: 1500mg q12h
Date of Regimen: 05/07/24-05/09/24
Provided Trough of: 15.6
Patient's SCR is: Similar to previous dosing experience
Patient's weight is: Similar to previous dosing experience
pt wound cx was positive for Alcaligenes faecalis
AUC Dosing Plan
- Dosing Variables
Dosing Weight (kg): 93.7
Dosing CrCl (ml/min): 125
Vd coefficient (L/kg): 0.7
- Empiric Dosing
Initial / Loading Dose: received 2000mg load at 2239 last night
Maintenance Regimen: 1500mg q12h
Estimated AUC (mcg*h/mL): 457
Estimated Peak (mcg*h/mL): 31.5
Estimated Trough (mcg/ml): 10.1
Estimated Half Life (H): 6.4
- Monitoring
No levels ordered at this time: consider within next few days
Pharmacokinetics Vancomycin I
- -
Patient Age: 64
Patient Sex: Male
Vancomycin Day #: 1
Indication: Skin And Soft Tissue
Requesting Provider: Liudmila Brown
Pertinent Antimicrobial Allergies:
NKDA
Height / Weight:
Height 6 ft 1 in
Actual Weight 93.667 kg
Pertinent Past Medical History: recent cellulitis of L leg
- Vital Signs / Lab Results
Temp Pulse Resp BP Pulse Ox
98.3 F 86 20 111/65 92
09/22/24 07:00 09/22/24 07:00 09/22/24 07:00 09/22/24 07:00 09/22/24 07:00
Lab Results - Hematology
09/21/24 09/22/24
19: 07:42
WBC 8.6 6.4
Lab Results - Chemistry
09/21/24 09/22/24
19: 07:42
BUN 3 L 5 L
Creatinine 0.6 L 0.6 L
Estimated Creat Clear > 125
Albumin 4.4
09/21/24 09/21/24 09/22/24
19:06 21:15 02:04
Lactic Acid 2.9 H 4.1 H* 2.0
--- NOTE | 2024-09-22 09:12 | W.PN.HOSP.TC ---
Today's Communication/Plan
-
Right foot MRI
Hold Eliquis
Continue antibiotics
ID, podiatry consult
Assessment / Plan
Assessment / Plan
Gen-AAOx3, NAD
HEENT-NC, AT, anicteric, clear oral mm
Neck-supple
CV-reg, no M, +S1/S2
Lungs-clear B/L
Abd-soft, NT, ND
Ext-no edema
Musculoskeletal-no cyanosis, clubbing
Skin-warm and dry, right plantar first metatarsal necrotic appearing ulcer without active drainage, surrounding cellulitis, foul odor
Neuro-grossly non-focal
Psych-calm, cooperative
Infected right foot first metatarsal ulcer -suspect underlying abscess and osteomyelitis. No history of diabetes. Foot has a very foul odor and suspect underlying deep infection.
Right foot x-ray shows irregularity with apparent fracture of the distal phalanx of the great toe, possible early osteomyelitis. CRP 23. ESR 22.
Lower extremity CT scan completed, report pending.
Lower extremity NIC done April of this year showed normal indices. No signs of aortic iliac inflow disease, no focal flow-limiting lower extremity arterial stenosis. Minimally diminished left toe brachial index suggesting the presence of mild
distal small vessel disease on the left.
Podiatry consulted, ID consulted, continue antibiotics.
Lactic acidosis due to infected foot. Surprisingly, afebrile without leukocytosis.
Check MRI of the right foot.
Hypothyroidism -on levothyroxine.
History of LLE DVT -unfortunately received a dose of Eliquis this morning. Hold further doses pending potential foot surgery.
Chronic bilateral lower extremity venous stasis dermatitis
Alcohol use disorder -drinks at least 3 glasses of wine daily. Recommended abstinence. Watch for withdrawal symptoms.
Full code
Anticipated Discharge: > 48 hours
Subjective/Interval History
-
Date of Service: September 22, 2024
Patient seen and examined. Complaining of right foot discomfort.
Objective Data
-
Labs:
Laboratory Results
09/22/24
07:42
WBC 6.4
Hgb 13.8
Hct 38.5 L
Plt Count 194
Sodium 136
Potassium 4.0
Chloride 107
Carbon Dioxide 24
BUN 5 L
Creatinine 0.6 L
Glucose 110 H
Calcium 8.4
Vital Signs:
Vital Signs
Temp Pulse Resp BP Pulse Ox
98.3 F 86 20 111/65 92
09/22/24 07:00 09/22/24 07:00 09/22/24 07:00 09/22/24 07:00 09/22/24 07:00
I&O
09/21/24 09/22/24 09/23/24
06:59 06:59 06:59
Intake Total 1780 / 1780
Output Total 1350 / 1350
Balance 430 / 430
Review of Systems
-
History Source: Patient
All other systems: Reviewed and negative
[2024-09-22 09:32] LABS: Glycohemoglobin (HgbA1c) 4.6 % (4.0-5.6)
--- NOTE | 2024-09-22 13:07 | WOUNDNOTE ---
L PLANTAR FOREFOOT/MID FOOT
--- NOTE | 2024-09-22 13:08 | WOUNDNOTE ---
R 1ST MTH (MEDIAL PLANTAR)
--- NOTE | 2024-09-22 13:09 | WOUNDNOTE ---
R FOOT (MEDIAL PLANTAR)
--- NOTE | 2024-09-22 13:10 | WOUNDNOTE ---
[facility] RN note: Patient admitted with infected R foot wound. Patient lives alone.
See H&P for complete history.
PMH: hypothyroid, DVT (Eliquis), cellulitis, venous stasis (wears compression stockings), drinks 3 glasses of wine daily, hernia repair.
Wound Location and type/assessment: Patient admitted with: R plantar medial 1st MTH black necrotic tissue and odor. R lateral foot linear black necrotic ulcer, no drainage. L plantar medial foot with ecchymotic red area. Dry black scab vs exudate L
heel. Toes with black scabbed exudate areas? Diffuse erythema RLE. +1 LE edema (R>L). +Pedal pulses easily palpable. 05/06/24 Venous Doppler Le's negative for DVT. 05/06/24 Arterial Doppler R NIC 1.18, R TBI .79; L NIC 1.04, L TBI .69, L mild distal
small vessel disease. L ischium stage 1 dull red pressure injury. Sacral/coccyx/karli red d/t moisture.
Appetite: good.
Pressure redistribution devices in place: [employer] Accumax. Patient turns self in bed.
Plan: Instructed patient no pressure on R forefoot/R heel weight bear only until further instructions from compressed gas plant worker. Patient stated he is shoe size 11.5 and he wears Croc's at home. Dressing applied to R foot wound. Heels off bed with pillows.
Patient incontinent of loose stool. Karli care given. Fabric Worker Supervisor Dr. Martin on consult who will manage wound; defer to compressed gas plant worker if/when knee high compression indicated. Discussed with JENNIFER Freedman. Will follow peripherally as needed.
Note to case management requested for discharge: VN if needed.
--- NOTE | 2024-09-22 14:34 | CM ---
Reviewed the chart notes and spoke with the patient at the bedside. The patient resides alone in a second floor apartment with a flight of steps to enter. The patient reports no DME/VN/SNF in the past. The patient confirmed his pharmacy of choice
[facility]. CM continues to be available to patient/family and is monitoring medical plan for needs at discharge.
Plan: Discharge plans will depend on the patient's progress.
[2024-09-22 15:00] VITALS: BP 113/68
--- NOTE | 2024-09-22 15:06 | CON.ID ---
Consultation
-
Date/Time Consultation Requested:
Date/Time Consultation Performed: 09/22/24
Requesting Provider: Dr Trinidad
Performing Provider: Dr Tomas
Reason for Consultation: bilateral infections of feet
Chief Complaint / Past History
Chief Complaint
worsening infections of bilateral feet with increasing pain in right foot
History of Present Illness
The patient presented to the ED 09/21/24 with complaints of worsening pain and infection in both feet with worrisome clinical findings with wounds wrapped in multiple pairs of socks per nursing with very fetid odor
The patient states that the feet have been worsening recently and have been causing him more pain especially the right foot. He recently started wearing compression stockings to help the pain and left them on for two weeks and when removed noticed
drainage and came to ED. Vascular studies were done in April without follow up.
Past History
Past Medical History: Hypothyroidism
Past Surgical History: Tonsilectomy (hernia)
Allergy History:
No Known Allergies Allergy (Unverified 09/21/24 18:54)
Medications Reviewed: Yes
Social History
Tobacco: Non-Smoker
Alcohol: Daily
Drug: None
Living: Alone
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
Family History
Family History: Not Pertinent
Review of Systems
Review of Systems
Gasteroenterology: Other (steatosis of liver on past US)
Hematologic: Other (Elevated MCV on CBC)
Musculoskeletal: Other (painful feet especially right )
Skin / Hair / Nails: Lesions and Other (draining ulcer of right foot)
All systems: All other systems were reviewed and were negative
Vital Signs
Temp Pulse Resp BP Pulse Ox
98.3 F 86 20 111/65 92
09/22/24 07:00 09/22/24 07:00 09/22/24 07:00 09/22/24 07:00 09/22/24 08:00
Physical Exam
Physical Exam
Constitutional: No Acute Distress, Well Developed, Comfortable, Chronically Ill and Non-toxic (appears somewhat unkempt)
Eyes: Pupils Equal, Pupils Round, No Conjunctival Hemorrhage and Sclera Anicteric
Pharynx: Benign
Oral: No Thrush and No Ulcers
Cardiovascular: Regular Rate
Pulmonary: Clear and Non Labored
Gastrointestinal: Soft and Non Tender
Extremities: Erythema (bilateral feet with swelling , cellulitis, fetid odor, appear chronically inflammed with brawny edema , areas of necrotic appearing tissue)
Musculoskeletal: Joint Swelling (toes bilateral especially great toe right)
Skin: Warm, Dry and Ulcers (cellulitic appearing bilateral feet)
Wound: Other (chronic appearing skin defects both feet)
Neurological: Awake, Alert, Oriented and AO x 3 (gair not observed)
Psychological: Calm (cooperative, conversant, good eye contact, pleasant)
Lab / Diagnostic Study Results
09/22/24 07:42
09/22/24 07:42
Abs Immat Gran (auto) 0.2 10^3/uL (0-0.05) H 09/21/24 19:06
Absolute Neuts (auto) 5.6 10^3/uL (1.4-6.5) 09/21/24 19:06
Absolute Lymphs (auto) 2.0 10^3/uL (1.2-3.4) 09/21/24 19:06
Absolute Monos (auto) 0.8 10^3/uL (0.1-0.6) H 09/21/24 19:06
Absolute Basos (auto) 0.1 10^3/uL (0-0.2) 09/21/24 19:06
Immature Gran % 1.7 % (0-0.5) H 09/21/24 19:06
Neutrophils % 64.9 % (42.2-75.2) 09/21/24 19:06
Lymphocytes % 23.1 % (20.5-51.1) 09/21/24 19:06
Monocytes % 8.8 % (1.7-9.3) 09/21/24 19:06
Eosinophils % 0.9 % (0-6) 09/21/24 19:06
Basophils % 0.6 % (0-2) 09/21/24 19:06
ESR 22 mm/hour (0-20) H 09/21/24 19:06
Lactic Acid 2.0 mmol/L (0.7-2.0) 09/22/24 02:04
C-Reactive Protein 23.30 mg/L (0.0-10.00) H 09/21/24 19:06
Microbiology Results
Micro:
09/21/24 22:09 Wound Culture - Pending
Foot - Right Gram Stain - Preliminary
09/21/24 21:15 Blood Culture - Pending
Blood/Venous
09/21/24 19:06 Blood Culture - Pending
Blood/Venous
09/22/24 02:04 MRSA Screen - Pending
Nose
Assessment / Plan
1. Bilateral foot pain with chronic appearing cellulitis with edema, erythema , ulceration and digit swelling , edema with some drainage and fetid odor elevated ESR/CRP
2. Imaging of feet was done with plain film, CT and MRI with likely osteomyelitis of first toe on the right and cellulitis with soft tissue edema without abscess collection noted
3. Blood cultures were drawn with patient afebrile and without leukocytosis but with elevated LA 4.1 on arrival to ED
4. in ED patient started on empiric antibiotic with Zosyn/ Vancomycin
5. History of ETOH use with normal LFT past US abdomen with hepatosplenomegaly with steatosis 05/10//Monitor carefully for ETOH withdrawal/ repeat liver imaging
6. Past vacular studies done April, would consider re-evaluation in setting of bilateral foot infections
7. Suggest Podiatry consultation
8. Suggest wound care consultation
Thank you for calling ID consultation
The ID team will continue to follow with you
Please call with any questions or concerns
Care Review
Plan reviewed with: Nurse (described patient condition upon arrival to floor with admission from ED)
Total Time Spent with Patient (in minutes): 55
[2024-09-22] MEDS: VANCOCIN 530 MG IV (18:38)
--- NOTE | 2024-09-22 18:50 | W.CS.POD ---
Consult Summary - Podiatry
-
This patient is a 64-year-old male with past medical history significant for Hyperthyroidism, Chronic venous insufficiency, peripheral neuropathy and DVT on anticoagulation admitted 09/21/24 from the ED for cellulitis of the right foot. Patient
relates that he has always had issues with swelling in his legs often wearing compression stockings. Up until a few days ago, he wore his stockings for 2 straight weeks, overnight as well and after noticing some pain in the left foot, he took the
stockings off and noticed the open wound, swelling and redness near the big toe joint of the right foot. He was aware of the odor from the foot, but did not think this was abnormal. After he dressed the wound for a day or so without improvement, he
visited an Urgent Care and was sent directly to the ER yesterday. Today he denies any discomfort in the right foot. Denies fever, chills or sweats.
Afebrile, VSS.
No leukocytosis.
09/21/24 XRAYS RIGHT foot: There is irregularity with apparent fracture of the distal phalanx of the great toe. Underlying early osteomyelitis is possible. If there is high clinical suspicion for osteomyelitis an MRI may be considered for further
evaluation.
09/21/24 CT RIGHT Lower Extremity: Marked subcutaneous edema without findings to confirm subcutaneous air/gas to suggest necrotizing fasciitis.
Findings at least suspicious for soft tissue ulcer adjacent to the head of the right first metatarsal. Cannot exclude some mild cortical irregularity of the medial surface of the right metatarsal head and adjacent sesamoid bone such as
osteomyelitis. As this imaging modality is somewhat insensitive for osteomyelitis, highly recommend MRI for more complete evaluation, if clinically warranted.
09/22/24 MRI, RIGHT foot:Evidence for a soft tissue wound off the plantar and medial aspect of the first metatarsal head. There is some adjacent nonenhancing soft tissue, suggesting devascularized soft tissue in association with infection and wound.
Enhancement of the marrow of the medial sesamoid off the plantar aspect of the first metatarsal head, which likely represents osteomyelitis. No convincing evidence for another focal area of osteomyelitis.
No evidence for soft tissue abscess.
Small to moderate joint effusion involving the first metatarsophalangeal joint.
Lower extremity NIC done April of this year showed normal indices. No signs of aortic iliac inflow disease, no focal flow-limiting lower extremity arterial stenosis. Minimally diminished left toe brachial index suggesting the presence of mild
distal small vessel disease on the left.
Exam:
DP pulses +2/4, bilaterally. PT pulses +1/4, bilaterally, Capillary filling time to the digits delayed.
Moderate Chronic edema of both LE's with venous stasis.
No open lesions or acute process involving the left foot and ankle.
Moderate edema and cellulitis about the right forefoot/midfoot medially. The right foot exhibits a large necrotic wound along the plantar medial forefoot, belying and extending proximal to the first MTPJ, 4-5cm x 3.5cm.
There is a fibrofatty, necrotic base which probes to the deep fascial layer of the first metatarsal head, possibly probing directly to bone. There is a foul odor, but no purulence.
Light debridement of the necrotic tissue reveals some bleeding tissue peripherally. No proximal tracking or abscess encountered.
Assessment:
Cellulitis and necrotic wound of the right foot.
Peripheral Neuropathy
Chronic venous insufficiency
H/O DVT on Eliquis
Plan:
Surgical debridement of necrotic wound, incision and drainage necessary, right foot.
Plan to OR tomorrow.
NPO after midnight ordered.
Wound care and weight bearing restrictions ordered.
[2024-09-22 19:41] LABS: Hepatitis C Antibody Negative (Negative)
[2024-09-22 23:18] VITALS: BP 117/61
[2024-09-23] VITALS (9 sets, daily range): BP systolic 102–123; BP diastolic 53–73; PULSE 63
[2024-09-23] MEDS: VANCOCIN 530 MG IV ×2 (05:34→17:44)
[2024-09-23] MEDS: SYNTHROID 88 MCG PO (06:02)
[2024-09-23 08:31] LABS: Hematocrit 37.8 % (39.0-52.0); Hemoglobin 13.2 g/dL (13.0-18.0); Mean Corp Hgb Conc. 34.9 g/dL (33.0-37.0); Mean Corpuscular Volume 114.2 fL (80.0-94.0); Nucleated Red Blood Cells % 0 % (-); Platelet Count 141 10^3/uL (130-400); Red Cell Dist. Width 15.4 % (11.5-14.5)
[2024-09-23] MEDS: ZOSYN 50 IV ×2 (08:44→20:53)
[2024-09-23 08:51] LABS: Blood Urea Nitrogen 6 mg/dl (9-20); Calcium 8.2 mg/dl (8.4-10.2); Carbon Dioxide 26 mmol/L (22-30); Chloride 110 mmol/L (98-107); Estimated Creatinine Clearance > 125 ml/min; Glucose 99 mg/dl (70-99); Potassium 3.9 mmol/L (3.5-5.1); Sodium 138 mmol/L (135-145); eGFR > 60.00
--- NOTE | 2024-09-23 09:04 | PHA.VAN.FU ---
Addendum entered and electronically signed by Erica Enriquez [facility] 09/23/24 09:14:
Agree with assessment and plan
Original Note:
Vancomycin Assessment / Plan
- Assessment
Renal Function: Stable
WBC's are: WNL
In the past 24 hrs, patient has been: Afebrile
Concomitant Antimicrobials: piperacillin/tazobactam
- Dosing Plan
Continue: 1500mg q12h
- Monitoring Plan
No level(s) ordered at this time: consider within next few days
- Follow Up
Pharmacy will continue to follow.
Vancomycin Follow UP
- -
Patient Age: 64
Patient Sex: Male
Vancomycin Day #: 2
Indication: Skin And Soft Tissue
Requesting Provider: Liudmila Brown/Dr. Tomas
Pertinent Antimicrobial Allergies:
NKDA
Height / Weight:
Height 6 ft 1 in
Actual Weight 93.667 kg
Pertinent Past Medical History: recent cellulitis of L leg
- Vital Signs / Lab Results
Temp Pulse Resp BP Pulse Ox
98.2 F 64 20 116/72 95
09/23/24 07:00 09/23/24 07:00 09/23/24 07:00 09/23/24 07:00 09/23/24 07:00
Lab Results - Hematology
09/21/24 09/22/24 09/23/24
19:06 07:42 07:52
WBC 8.6 6.4 4.3 L
Lab Results - Chemistry
09/21/24 09/22/24 09/23/24
19:06 07:42 07:52
BUN 3 L 5 L 6 L
Creatinine 0.6 L 0.6 L 0.6 L
Estimated Creat Clear > 125 > 125
Albumin 4.4
09/21/24 09/21/24 09/22/24
19:06 21:15 02:04
Lactic Acid 2.9 H 4.1 H* 2.0
Microbiology Results
09/22/24 02:04 MRSA Screen - Final
Nose No Methicillin Resistant Staphylococcus aureus isolated.
09/21/24 21:15 Blood Culture - Preliminary
Blood/Venous No Growth in 24 hours- Final report to follow
09/21/24 19:06 Blood Culture - Preliminary
Blood/Venous No Growth in 24 hours- Final report to follow
09/21/24 22:09 Gram Stain - Preliminary
Foot - Right
--- NOTE | 2024-09-23 10:14 | W.PN.HOSP.TC ---
Today's Communication/Plan
-
Await OR
Continue antibiotics
Assessment / Plan
Assessment / Plan
Gen-AAOx3, NAD
HEENT-NC, AT, anicteric, clear oral mm
Neck-supple
CV-reg, no M, +S1/S2
Lungs-clear B/L
Abd-soft, NT, ND
Ext-no edema
Musculoskeletal-no cyanosis, clubbing
Skin-warm and dry, right foot dressing intact
Neuro-grossly non-focal
Psych-calm, cooperative
Right foot 1st metatarsal skin/soft tissue infection/acute osteomyelitis -MRI report noted, no abscess. No history of diabetes.
Lower extremity NIC done April of this year showed normal indices. No signs of aortic iliac inflow disease, no focal flow-limiting lower extremity arterial stenosis. Minimally diminished left toe brachial index suggesting the presence of mild
distal small vessel disease on the left.
Podiatry and ID following. Continue vancomycin, Zosyn per ID. Blood cultures negative. Wound Gram stain shows many gram-positive cocci, gram-positive rods, gram-negative rods.
Lactic acidosis due to infected foot. Leukopenia noted today. Afebrile.
N.p.o., awaiting incision and debridement of necrotic wound today.
Hypothyroidism -on levothyroxine.
History of LLE DVT -last dose of Eliquis was morning of 09/22. Hold further doses pending potential foot surgery.
Chronic bilateral lower extremity venous stasis dermatitis
Alcohol use disorder -drinks at least 3 glasses of wine daily. Recommended abstinence. Watch for withdrawal symptoms.
Full code
Anticipated Discharge: > 48 hours
Subjective/Interval History
-
Date of Service: September 23, 2024
Patient seen and examined, no complaints.
Objective Data
-
Labs:
Laboratory Results
09/23/24
07:52
WBC 4.3 L
Hgb 13.2
Hct 37.8 L
Plt Count 141 D
Sodium 138
Potassium 3.9
Chloride 110 H
Carbon Dioxide 26
BUN 6 L
Creatinine 0.6 L
Glucose 99
Calcium 8.2 L
Vital Signs:
Vital Signs
Temp Pulse Resp BP Pulse Ox
98.2 F 64 20 116/72 95
09/23/24 07:00 09/23/24 07:00 09/23/24 07:00 09/23/24 07:00 09/23/24 07:00
I&O
09/22/24 09/23/24 09/24/24
06:59 06:59 06:59
Intake Total 1780 / 1780 480 / 480
Output Total 1350 / 1350 500 / 500
Balance 430 / 430 -20 / -20
Review of Systems
-
History Source: Patient
All other systems: Reviewed and negative
--- NOTE | 2024-09-23 11:20 | W.PN.ID1 ---
Date of Service
Date of Service: September 23, 2024
Today's Communication
discussed with patient
Assessment / Plan
1. Bilateral foot pain with chronic appearing cellulitis with edema, erythema , ulceration and digit swelling , edema with some drainage and fetid odor elevated ESR/CRP
2. Imaging of feet was done with plain film, CT and MRI with likely osteomyelitis of first toe on the right and cellulitis with soft tissue edema without abscess collection noted on MRI
3. Blood cultures were drawn with patient afebrile and without leukocytosis but with elevated LA 4.1 on arrival to ED
4. in ED patient started on empiric antibiotic with Zosyn/ Vancomycin
5. History of ETOH use with normal LFT past US abdomen with hepatosplenomegaly with steatosis 05/10//Monitor carefully for ETOH withdrawal/ repeat liver imaging
6. Past vacular studies done April, would consider re-evaluation in setting of bilateral foot infections
7. Podiatry consultation in place with surgery/ debridement planned for today
8. Suggest wound care consultation
Thank you for calling ID consultation
The ID team will continue to follow with you
Please call with any questions or concerns
Chief Complaint
-: Cellulitis (Bilateral foot infection/cellulitis with osteomyelitis great toe )
Subjective / Review of Systems
Review of Systems: No Fever, No Chills, No Headache, No Pharyngitis, No Stiff Neck, No Swollen Lymph Nodes, No Cough, No Sputum Production, No Chest Pain, No Palpitations, No Abdominal Pain, No Nausea, No Vomiting, Diarrhea, No Dysuria, Joint Pain
(feet/toes) and Skin Rash
Vital Signs / Physical Exam
Vital Signs
Vital Signs
Temp Pulse Resp BP Pulse Ox
98.2 F 64 20 116/72 95
09/23/24 07:00 09/23/24 07:00 09/23/24 07:00 09/23/24 07:00 09/23/24 07:00
Physical Exam
Constitutional: No Acute Distress, Comfortable, Chronically Ill, Non-toxic and Cachetic
Head: Normocephalic
Eyes: Pupils Equal, Pupils Round, No Conjunctival Hemorrhage and Sclera Anicteric
Oropharyngeal: Benign
Cardiovascular: Regular Rate
Pulmonary: Clear and Non Labored (decreased breath sounds at bases)
Gastrointestinal: Soft, Non Tender, Distended, Decreased Bowel Sounds, No Rebound, No Guarding and Hepatomegaly
Extremities: Edema, Erythema and Calf Swelling (chronic skin changes to bilateral lower extremities with fetid odor associated with bilateral foot infections)
Musculoskeletal: Joint Swelling
Skin: Warm, Dry and Ulcers (cellulitis bilateral feet)
Wound: Other (bilateral feet /great toe with drainage and right toe osteomyelitis shown on MRI)
Neurological: Awake, Alert, Oriented and AO x 3 (gait not observed)
Psychological: Calm (cooperative with unusual affect)
Objective Data
Lab Data
Lab Results
09/23/24 07:52
09/23/24 07:52
ESR 22 mm/hour (0-20) H 09/21/24 19:06
Estimated Creat Clear > 125 ml/min 09/23/24 07:52
Lactic Acid 2.0 mmol/L (0.7-2.0) 09/22/24 02:04
Total Bilirubin 1.3 mg/dl (0.2-1.3) 09/21/24 19:06
AST 33 U/L (17-59) 09/21/24 19:06
ALT 28 U/L (0-50) 09/21/24 19:06
Alkaline Phosphatase 79 U/L (38-126) 09/21/24 19:06
C-Reactive Protein 23.30 mg/L (0.0-10.00) H 09/21/24 19:06
Most recent labs reviewed.
Microbiology: Report Reviewed
Micro Results:
09/21/24 22:09 Wound Culture - Preliminary
Foot - Right Gram Stain - Preliminary
09/22/24 02:04 MRSA Screen - Final
Nose No Methicillin Resistant Staphylococcus aureus isolated.
09/21/24 21:15 Blood Culture - Preliminary
Blood/Venous No Growth in 24 hours- Final report to follow
09/21/24 19:06 Blood Culture - Preliminary
Blood/Venous No Growth in 24 hours- Final report to follow
MRI: Report Reviewed
Care Review
Total Time Spent with Patient (in minutes): 35
[2024-09-23] MEDS: FOLVITE 1 MG PO (11:24)
[2024-09-23] MEDS: VITAMIN B1 100 MG PO (11:24)
--- NOTE | 2024-09-23 13:00 | CM ---
Reviewed the chart notes and spoke with the patient at the bedside. Patient was about to go to OR for debridement to foot. CM continues to be available to patient/family and is monitoring medical plan for needs at discharge.
Plan: Discharge plans will depend on the patient's progress.
[2024-09-23] MEDS: ZOSYN IV (13:15)
--- NOTE | 2024-09-23 13:54 | W.PN.UPDATE ---
Update Note
Progress Note Update
Review again of XRAY and MRI images of the right foot.
ID note appreciated. Maintain IV antibiotics.
Pre-OP:
We discussed with the patient the planned procedure of excision and removal of infected and non-viable skin, soft tissue and bone of the right foot. If non-viable bone is encountered, we will take a specimen for culture. The patient understands the
benefits, risks and possible complications of the proposed procedure, and well as the potential need for further surgery. Surgical consent obtained at bedside.
--- NOTE | 2024-09-23 14:04 | W.PN.UPDATE ---
Update Note
Progress Note Update
Post Op Note:
Procedure under IV sedation: Excision/Removal of non-viable and infected skin, soft tissue and bone, right foot. Bone biopsy, direct extension plantar ridge of first metatarsal head.
EBL: 5cc
Somewhat healthy bleeding soft tissue remains with viable flexor tendon exposure, and lightly bleeding bone within wound base, right plantarmedial forefoot.
Prognosis: Fair
Patient tolerated the procedure and anesthesia well.
Will pull packing and change dressing tomorrow.
Orders:
Resume diet.
NWB on right foot.
Surgical shoe ordered.
[2024-09-23] MEDS: ELIQUIS PO (19:53)
--- NOTE | 2024-09-23 19:54 | PTCARENOTE ---
Pt on eliquis for hx of DVT. Eliquis on hold last night & this am for I&D. No mention of restarting eliquis per podiatry or hospitalist note. RECREATION FAC[employer]ITIES SUPERVISOR notified, agreed to continue holding Eliquis for tonight. DVT prophylaxis on left leg-SCDs. Right leg
elevated per order. Pt notified of this & is agreeable with plan of care. Resting comfortably at this time.
[2024-09-24] MEDS: ZOSYN 50 IV ×4 (02:27→20:33)
[2024-09-24 02:43] VITALS: BP 117/75
[2024-09-24] MEDS: SYNTHROID 88 MCG PO (05:57)
[2024-09-24] MEDS: VANCOCIN 530 MG IV (05:57)
[2024-09-24 06:21] LABS: Hematocrit 39.2 % (39.0-52.0); Hemoglobin 14.0 g/dL (13.0-18.0); Mean Corp Hgb Conc. 35.7 g/dL (33.0-37.0); Mean Corpuscular Volume 114.3 fL (80.0-94.0); Nucleated Red Blood Cells % 0 % (-); Platelet Count 137 10^3/uL (130-400); Red Cell Dist. Width 14.9 % (11.5-14.5)
[2024-09-24 06:51] LABS: Blood Urea Nitrogen 8 mg/dl (9-20); Calcium 8.6 mg/dl (8.4-10.2); Carbon Dioxide 23 mmol/L (22-30); Chloride 110 mmol/L (98-107); Estimated Creatinine Clearance 76 ml/min; Glucose 103 mg/dl (70-99); Potassium 4.0 mmol/L (3.5-5.1); Sodium 138 mmol/L (135-145); eGFR > 60.00
[2024-09-24 07:15] VITALS: BP 113/67
--- NOTE | 2024-09-24 08:27 | PHA.VAN.FU ---
Vancomycin Assessment / Plan
- Assessment
Renal Function: Stable
WBC's are: WNL
In the past 24 hrs, patient has been: Afebrile
Concomitant Antimicrobials: piperacillin/tazobactam
- Dosing Plan
Continue: vancomycin 1500 mg Q12H
- Monitoring Plan
Peak Level: 09/24 @2130
Trough Level: 09/25 0530
- Follow Up
Pharmacy will continue to follow.
Vancomycin Follow UP
- -
Patient Age: 64
Patient Sex: Male
Vancomycin Day #: 3
Indication: Skin And Soft Tissue
Requesting Provider: Liudmila Brown/Dr. Tomas
Pertinent Antimicrobial Allergies:
NKDA
Height / Weight:
Height 6 ft 1 in
Actual Weight 93.667 kg
Pertinent Past Medical History: recent cellulitis of L leg
- Vital Signs / Lab Results
Temp Pulse Resp BP Pulse Ox
98.0 F 76 16 113/67 98
09/24/24 07:15 09/24/24 07:15 09/24/24 07:15 09/24/24 07:15 09/24/24 07:15
Lab Results - Hematology
09/21/24 09/22/24 09/23/24
19:06 07:42 07:52
WBC 8.6 6.4 4.3 L
09/24/24
06:07
WBC 6.9
Lab Results - Chemistry
09/21/24 09/22/24 09/23/24
19:06 07:42 07:52
BUN 3 L 5 L 6 L
Creatinine 0.6 L 0.6 L 0.6 L
Estimated Creat Clear > 125 > 125
Albumin 4.4
09/24/24
06:07
BUN 8 L
Creatinine 1.1
Estimated Creat Clear 76
Albumin
09/21/24 09/21/24 09/22/24
19:06 21:15 02:04
Lactic Acid 2.9 H 4.1 H* 2.0
Microbiology Results
09/21/24 21:15 Blood Culture - Preliminary
Blood/Venous No Growth in 48 hours- Final report to follow
09/21/24 19:06 Blood Culture - Preliminary
Blood/Venous No Growth in 48 hours- Final report to follow
09/23/24 13:35 Gram Stain - Preliminary
Toe
09/21/24 22:09 Wound Culture - Preliminary
Foot - Right Gram Stain - Preliminary
09/22/24 02:04 MRSA Screen - Final
Nose No Methicillin Resistant Staphylococcus aureus isolated.
[2024-09-24] MEDS: FOLVITE 1 MG PO (08:54)
[2024-09-24] MEDS: VITAMIN B1 100 MG PO (08:54)
[2024-09-24] MEDS: ELIQUIS 5 MG PO ×2 (09:27→20:33)
[2024-09-24 11:10] VITALS: BP 114/65
--- NOTE | 2024-09-24 13:08 | W.PN.HOSP.TC ---
Today's Communication/Plan
-
Await surgical shoe
PT/OT
Continue antibiotics
Await cultures
Assessment / Plan
Assessment / Plan
Gen-AAOx3, NAD
HEENT-NC, AT, anicteric, clear oral mm
Neck-supple
CV-reg, no M, +S1/S2
Lungs-clear B/L
Abd-soft, NT, ND
Ext-no edema
Musculoskeletal-no cyanosis, clubbing
Skin-warm and dry, right foot dressing intact
Neuro-grossly non-focal
Psych-calm, cooperative
Right foot 1st metatarsal skin/soft tissue infection/acute osteomyelitis - MRI notes osteomyelitis in the sesamoid bones and plantar aspect of the first metatarsal head, no abscess. No history of diabetes.
Suspect he has underlying chronic peripheral neuropathy, perhaps alcohol related. This likely predisposed him to the current infection. Of note he was hospitalized here in April 2024 with LLE purulent cellulitis.
Lower extremity NIC done April 2024 showed normal indices. No signs of aortic iliac inflow disease, no focal flow-limiting lower extremity arterial stenosis. Minimally diminished left toe brachial index suggesting the presence of mild distal small
vessel disease on the left.
Podiatry and ID following. Continue vancomycin, Zosyn per ID. Blood cultures negative. Wound culture from 09/21 shows gram-negative bacilli of 2 morphotypes, Enterococcus species.
Lactic acidosis due to infected foot. Leukopenia noted today. Afebrile.
Patient taken to the OR 09/23 by podiatry service for excision and removal of nonviable and infected skin, soft tissue and bone, right foot. Bone biopsy done. Path report pending. Surgical shoe ordered, awaiting arrival.
Nonweightbearing right foot per podiatry.
Hypothyroidism -on levothyroxine. Check TSH.
History of LLE DVT -Eliquis resumed.
Chronic bilateral lower extremity venous stasis dermatitis -was using compression stockings prior to admission.
Alcohol use disorder -drinks at least 3 glasses of wine daily. Recommended abstinence. Watch for withdrawal symptoms.
Full code
PT/OT
Anticipated Discharge: > 48 hours
Subjective/Interval History
-
Date of Service: September 24, 2024
Patient seen and examined. No complaints. Denies pain.
Objective Data
-
Labs:
Laboratory Results
09/24/24
06:07
WBC 6.9
Hgb 14.0
Hct 39.2
Plt Count 137
Sodium 138
Potassium 4.0
Chloride 110 H
Carbon Dioxide 23
BUN 8 L
Creatinine 1.1
Glucose 103 H
Calcium 8.6
Vital Signs:
Vital Signs
Temp Pulse Resp BP Pulse Ox
98.1 F 65 16 114/65 98
09/24/24 11:10 09/24/24 11:10 09/24/24 11:10 09/24/24 11:10 09/24/24 11:10
I&O
09/23/24 09/24/24 09/25/24
06:59 06:59 06:59
Intake Total 480 / 480 675 / 675
Output Total 500 / 500 400 / 400
Balance -20 / -20 275 / 275
Review of Systems
-
History Source: Patient
All other systems: Reviewed and negative
--- NOTE | 2024-09-24 13:25 | W.PN.ID1 ---
Date of Service
Date of Service: September 24, 2024
Today's Communication
DC Vanco.
Continue Zosyn
Assessment / Plan
# Right 1st MT wound infection/foot cellulitis
# Possible right medial sesamoid bone osteo by MRI
# Peripheral neuropathy
# Venous insufficiency
-09/23 s/p OR excisional debridement of wound and bone biopsy
- OR cx and path pending.
- Continue Zosyn.
- DC Vancomycin.
Chief Complaint
-: Cellulitis (Bilateral foot infection/cellulitis with osteomyelitis great toe )
Subjective / Review of Systems
Feels well. No pain.
Vital Signs / Physical Exam
Vital Signs
Vital Signs
Temp Pulse Resp BP Pulse Ox
98.1 F 65 16 114/65 98
09/24/24 11:10 09/24/24 11:10 09/24/24 11:10 09/24/24 11:10 09/24/24 11:10
Physical Exam
Constitutional: No Acute Distress
Cardiovascular: Regular Rate and S1/S2
Pulmonary: Clear
Gastrointestinal: Soft, Non Tender and Non Distended
Wound: Other (Right foot dressing dry)
Neurological: AO x 3
Objective Data
Lab Data
Lab Results
09/24/24 06:07
09/24/24 06:07
ESR 22 mm/hour (0-20) H 09/21/24 19:06
Estimated Creat Clear 76 ml/min 09/24/24 06:07
Lactic Acid 2.0 mmol/L (0.7-2.0) 09/22/24 02:04
Total Bilirubin 1.3 mg/dl (0.2-1.3) 09/21/24 19:06
AST 33 U/L (17-59) 08/06/25 19:06
ALT 28 U/L (0-50) 09/21/24 19:06
Alkaline Phosphatase 79 U/L (38-126) 09/21/24 19:06
C-Reactive Protein 23.30 mg/L (0.0-10.00) H 09/21/24 19:06
Most recent labs reviewed.
Micro Results:
09/21/24 22:09 Wound Culture - Preliminary
Foot - Right Gram negative bacilli
Enterococcus species
Gram Stain - Preliminary
09/23/24 13:35 Anaerobic Culture - Preliminary
Toe Culture pending. Anaerobic cultures are examined after 3
days incubation. Additional information to follow.
09/23/24 13:35 Wound Culture - Preliminary
Toe Gram Stain - Preliminary
09/21/24 21:15 Blood Culture - Preliminary
Blood/Venous No Growth in 48 hours- Final report to follow
09/21/24 19:06 Blood Culture - Preliminary
Blood/Venous No Growth in 48 hours- Final report to follow
09/22/24 02:04 MRSA Screen - Final
Nose No Methicillin Resistant Staphylococcus aureus isolated.
09/22/24 MRI RLE: Evidence for a soft tissue wound off the plantar and medial aspect of the first metatarsal head. There is some adjacent nonenhancing soft tissue, suggesting devascularized soft tissue in association with infection and wound.
Enhancement of the marrow of the medial sesamoid off the plantar aspect of the first metatarsal head, which likely represents osteomyelitis.
--- NOTE | 2024-09-24 14:09 | W.PN.POD ---
Today's Communication
Today's Communication
Wound base viable. Await bone culture results.
Assessment / Plan
-
Assessment:
Cellulitis and necrotic wound of the right foot.
S/P one day surgical debridement of infected and non-viable tissue, w/ bone biopsy. Wound base viable/prognosis fair.
Peripheral Neuropathy
Chronic venous insufficiency
H/O DVT on Eliquis
Plan:
Patient to remain NWB on the right foot.
ID note appreciated. Continue IV antibiotics.
Await bone culture results.
No dressing orders at this time. Adaptic and saline wet to dry dressing applied.
Subjective
Chief Complaint
S/P one day debridment of infected, necrotic wound, right foot with bone biopsy
Subjective
Patient resting comfortably in bed. Denies fever, chills or sweats.
Objective
Temp Pulse Resp BP Pulse Ox
98.1 F 65 16 114/65 98
09/24/24 11:10 09/24/24 11:10 09/24/24 11:10 09/24/24 11:10 09/24/24 11:10
09/24/24 06:07
09/24/24 06:07
Vital Signs and Lab results were reviewed.
09/21/24 XRAYS RIGHT foot: There is irregularity with apparent fracture of the distal phalanx of the great toe. Underlying early osteomyelitis is possible. If there is high clinical suspicion for osteomyelitis an MRI may be considered for further
evaluation.
09/21/24 CT RIGHT Lower Extremity: Marked subcutaneous edema without findings to confirm subcutaneous air/gas to suggest necrotizing fasciitis.
Findings at least suspicious for soft tissue ulcer adjacent to the head of the right first metatarsal. Cannot exclude some mild cortical irregularity of the medial surface of the right metatarsal head and adjacent sesamoid bone such as
osteomyelitis. As this imaging modality is somewhat insensitive for osteomyelitis, highly recommend MRI for more complete evaluation, if clinically warranted.
09/22/24 MRI, RIGHT foot:Evidence for a soft tissue wound off the plantar and medial aspect of the first metatarsal head. There is some adjacent nonenhancing soft tissue, suggesting devascularized soft tissue in association with infection and wound.
Enhancement of the marrow of the medial sesamoid off the plantar aspect of the first metatarsal head, which likely represents osteomyelitis. No convincing evidence for another focal area of osteomyelitis.
No evidence for soft tissue abscess.
Small to moderate joint effusion involving the first metatarsophalangeal joint.
Lower extremity NIC done April of this year showed normal indices. No signs of aortic iliac inflow disease, no focal flow-limiting lower extremity arterial stenosis. Minimally diminished left toe brachial index suggesting the presence of mild
distal small vessel disease on the left.
Exam:
DP pulses +2/4, bilaterally. PT pulses +1/4, bilaterally, Capillary filling time to the digits delayed.
Moderate Chronic edema of both LE's with venous stasis.
No open lesions or acute process involving the left foot and ankle.
Mild serosanguineous drainage in bandage.
The cellulitis and edema of the right midfoot and forefoot has essentially resolved clinically. Capillar filling to the right great toe 1-2 seconds.
The surgical wound is clean and dry with light blood oozing following removal of packing, Granular tissue base with exception of the in wound, exposed Flexor hallucis tendon.
No malodor, no purulence.
[2024-09-24 14:51] LABS: TSH 4.22 uIU/ml (0.47-4.68)
[2024-09-24 15:20] VITALS: BP 109/62
--- NOTE | 2024-09-24 17:40 | PTCARENOTE ---
Per Podiatry, patient to remain NWB RLE at this time for wound healing, activity order updated to reflect change by this RN and Rsoanna ELLIS. RLE dressing changed by podiatry, Sona antonio at bedside.
[2024-09-24 23:39] VITALS: BP 116/70
[2024-09-25] MEDS: ZOSYN 50 IV ×4 (02:19→19:51)
[2024-09-25] MEDS: SYNTHROID 88 MCG PO (05:57)
[2024-09-25 08:27] VITALS: BP 91/63
[2024-09-25] MEDS: ELIQUIS 5 MG PO ×2 (09:02→19:50)
[2024-09-25] MEDS: VITAMIN B1 100 MG PO (09:02)
[2024-09-25] MEDS: FOLVITE 1 MG PO (09:02)
--- NOTE | 2024-09-25 10:21 | W.PN.HOSP.TC ---
Today's Communication/Plan
-
Continue current care
Assessment / Plan
Assessment / Plan
Gen-AAOx3, NAD
HEENT-NC, AT, anicteric, clear oral mm
Neck-supple
CV-reg, no M, +S1/S2
Lungs-clear B/L
Abd-soft, NT, ND
Ext-no edema
Musculoskeletal-no cyanosis, clubbing
Skin-warm and dry, right foot dressing intact
Neuro-grossly non-focal
Psych-calm, cooperative
Right foot 1st metatarsal skin/soft tissue infection/acute osteomyelitis - MRI notes osteomyelitis in the sesamoid bones and plantar aspect of the first metatarsal head, no abscess. No history of diabetes.
Suspect he has underlying chronic peripheral neuropathy, perhaps alcohol related. This likely predisposed him to the current infection. Of note he was hospitalized here in April 2024 with LLE purulent cellulitis.
Lower extremity NIC done April 2024 showed normal indices. No signs of aortic iliac inflow disease, no focal flow-limiting lower extremity arterial stenosis. Minimally diminished left toe brachial index suggesting the presence of mild distal small
vessel disease on the left.
Podiatry and ID following. Continue Zosyn per ID. Blood cultures negative. Wound culture from 09/21 shows gram-negative bacilli of 2 morphotypes, Enterococcus species.
Lactic acidosis due to infected foot. Leukopenia noted today. Afebrile.
Patient taken to the OR 09/23 by podiatry service for excision and removal of nonviable and infected skin, soft tissue and bone, right foot. OR culture pending. Bone biopsy done, path report pending. Surgical shoe ordered, awaiting arrival.
Nonweightbearing right foot per podiatry.
Hypothyroidism -on levothyroxine. TSH normal.
History of LLE DVT -Eliquis resumed.
Chronic bilateral lower extremity venous stasis dermatitis -was using compression stockings prior to admission.
Alcohol use disorder -drinks at least 3 glasses of wine daily. Recommended abstinence. Watch for withdrawal symptoms.
Full code
PT/OT
Anticipated Discharge: > 48 hours
Subjective/Interval History
-
Date of Service: September 25, 2024
Patient seen and examined. No complaints.
Objective Data
-
Vital Signs:
Vital Signs
Temp Pulse Resp BP Pulse Ox
97.8 F 60 18 91/63 100
09/25/24 08:27 09/25/24 08:27 09/25/24 08:27 09/25/24 08:27 09/25/24 08:27
I&O
09/24/24 09/25/24 09/26/24
06:59 06:59 06:59
Intake Total 675 / 675 1680 / 1680
Output Total 400 / 400 2275 / 2275
Balance 275 / 275 -595 / -595
Review of Systems
-
History Source: Patient
All other systems: Reviewed and negative
--- NOTE | 2024-09-25 11:39 | W.PN.ID1 ---
Date of Service
Date of Service: September 25, 2024
Today's Communication
Continue antibiotics.
Assessment / Plan
# Right 1st metatarsal wound infection/foot cellulitis
# Suspected right medial sesamoid bone osteo by MRI
# Peripheral neuropathy
# Venous insufficiency
-8 s/p OR excisional debridement of wound and bone biopsy
- OR cx pending; path pending.
- Continue Zosyn.
Chief Complaint
-: Cellulitis (Bilateral foot infection/cellulitis with osteomyelitis great toe )
Subjective / Review of Systems
Patient seen and examined. Reports little pain in the right foot.
Review of Systems: No Fever and No Chills
Vital Signs / Physical Exam
Vital Signs
Vital Signs
Temp Pulse Resp BP Pulse Ox
97.8 F 60 18 91/63 100
09/25/24 08:27 09/25/24 08:27 09/25/24 08:27 09/25/24 08:27 09/25/24 08:27
Physical Exam
Constitutional: No Acute Distress, Comfortable and Non-toxic
Eyes: Sclera Anicteric
Cardiovascular: Regular Rate and S1/S2
Pulmonary: Clear
Gastrointestinal: Soft, Non Tender and Non Distended
Wound: Other (Right foot dressing dry. Wound sub 1st met . Serous drainage. )
Neurological: AO x 3
Objective Data
Lab Data
Lab Results
09/24/24 06:07
09/24/24 06:07
ESR 22 mm/hour (0-20) H 09/21/24 19:06
Estimated Creat Clear 76 ml/min 09/24/24 06:07
Lactic Acid 2.0 mmol/L (0.7-2.0) 09/22/24 02:04
Total Bilirubin 1.3 mg/dl (0.2-1.3) 09/21/24 19:06
AST 33 U/L (17-59) 09/21/24 19:06
ALT 28 U/L (0-50) 09/21/24 19:06
Alkaline Phosphatase 79 U/L (38-126) 09/21/24 19:06
C-Reactive Protein 23.30 mg/L (0.0-10.00) H 09/21/24 19:06
Most recent labs reviewed.
Micro Results:
09/23/24 13:35 Wound Culture - Preliminary
Toe Gram Stain - Preliminary
09/21/24 22:09 Wound Culture - Preliminary
Foot - Right Gram negative bacilli
Enterococcus species
Gram Stain - Preliminary
09/21/24 21:15 Blood Culture - Preliminary
Blood/Venous No Growth in 72 hours- Final report to follow
09/21/24 19:06 Blood Culture - Preliminary
Blood/Venous No Growth in 72 hours- Final report to follow
09/23/24 13:35 Anaerobic Culture - Preliminary
Toe Culture pending. Anaerobic cultures are examined after 3
days incubation. Additional information to follow.
09/22/24 02:04 MRSA Screen - Final
Nose No Methicillin Resistant Staphylococcus aureus isolated.
Imaging:
09/22/24 MRI RLE: Evidence for a soft tissue wound off the plantar and medial aspect of the first metatarsal head. There is some adjacent nonenhancing soft tissue, suggesting devascularized soft tissue in association with infection and wound.
Enhancement of the marrow of the medial sesamoid off the plantar aspect of the first metatarsal head, which likely represents osteomyelitis.
--- NOTE | 2024-09-25 14:04 | W.PN.POD ---
Today's Communication
Today's Communication
Cellulitis resolved.
Wound viable, progressing slowly.
Await bone culture results.
Assessment / Plan
-
Assessment:
Cellulitis and necrotic wound of the right foot.
S/P 2 days surgical debridement of infected and non-viable tissue, w/ bone biopsy. Wound base viable/prognosis fair.
Peripheral Neuropathy
Chronic venous insufficiency
H/O DVT on Eliquis
Plan:
Patient to remain NWB on the right foot.
ID note appreciated. Continue IV antibiotics.
Await bone culture/path results.
No dressing orders at this time. Adaptic and saline wet to dry dressing applied.
Subjective
Chief Complaint
S/P 2 days Surgical debridement/bone biopsy, right foot.
Subjective
Patient resting comfortably. Denies fever, chills or sweats. Reports noticing increased sensitivity in the right foot.
Objective
Temp Pulse Resp BP Pulse Ox
97.8 F 60 18 91/63 100
09/25/24 08:27 09/25/24 08:27 09/25/24 08:27 09/25/24 08:27 09/25/24 08:27
09/21/24 XRAYS RIGHT foot: There is irregularity with apparent fracture of the distal phalanx of the great toe. Underlying early osteomyelitis is possible. If there is high clinical suspicion for osteomyelitis an MRI may be considered for further
evaluation.
09/21/24 CT RIGHT Lower Extremity: Marked subcutaneous edema without findings to confirm subcutaneous air/gas to suggest necrotizing fasciitis.
Findings at least suspicious for soft tissue ulcer adjacent to the head of the right first metatarsal. Cannot exclude some mild cortical irregularity of the medial surface of the right metatarsal head and adjacent sesamoid bone such as
osteomyelitis. As this imaging modality is somewhat insensitive for osteomyelitis, highly recommend MRI for more complete evaluation, if clinically warranted.
09/22/24 MRI, RIGHT foot:Evidence for a soft tissue wound off the plantar and medial aspect of the first metatarsal head. There is some adjacent nonenhancing soft tissue, suggesting devascularized soft tissue in association with infection and wound.
Enhancement of the marrow of the medial sesamoid off the plantar aspect of the first metatarsal head, which likely represents osteomyelitis. No convincing evidence for another focal area of osteomyelitis.
No evidence for soft tissue abscess.
Small to moderate joint effusion involving the first metatarsophalangeal joint.
Lower extremity NIC done April of this year showed normal indices. No signs of aortic iliac inflow disease, no focal flow-limiting lower extremity arterial stenosis. Minimally diminished left toe brachial index suggesting the presence of mild
distal small vessel disease on the left.
09/24/24 06:07
09/24/24 06:07
Vital Signs and Lab results were reviewed.
Exam:
DP pulses +2/4, bilaterally. PT pulses +1/4, bilaterally, Capillary filling time to the digits delayed.
Moderate Chronic edema of both LE's with venous stasis.
Mild serosanguineous drainage in bandage.
The cellulitis and edema of the right midfoot and forefoot has essentially resolved clinically. Capillary filling to the right great toe 1-2 seconds.
The surgical wound is clean, stable with light serosanguineous drainage. No malodor, no purulence.
Trace granulation noted over exposed Flexor hallucis tendon and bone.
Bone culture/path: PND.
[2024-09-25 15:07] VITALS: BP 98/60
[2024-09-25 23:14] VITALS: BP 102/62
[2024-09-26] MEDS: ZOSYN 50 IV ×4 (01:41→19:29)
[2024-09-26] MEDS: SYNTHROID 88 MCG PO (05:00)
[2024-09-26 07:45] VITALS: BP 128/71
[2024-09-26] MEDS: VITAMIN B1 100 MG PO (08:13)
[2024-09-26] MEDS: ELIQUIS 5 MG PO ×2 (08:13→19:29)
[2024-09-26] MEDS: FOLVITE 1 MG PO (08:13)
--- NOTE | 2024-09-26 11:41 | W.PN.ID1 ---
Date of Service
Date of Service: September 26, 2024
Today's Communication
Continue antibiotics.
Assessment / Plan
# Right 1st metatarsal wound infection/foot cellulitis
# Suspected right medial sesamoid bone osteo by MRI
# Peripheral neuropathy
# Venous insufficiency
Recommendations:
-/8 s/p OR excisional debridement of wound and bone biopsy
- OR cx with Providencia, Alcaligenes faecalis and Enterococcus faecalis. All isolates susceptible to Zosyn.
- Path pending.
- Continue Zosyn.
����������������������������������������������������������
Chief Complaint
-: Cellulitis (Bilateral foot infection/cellulitis with osteomyelitis great toe ) and Other (Right foot osteomyelitis)
Subjective / Review of Systems
Patient seen and examined. Reports no specific complaints today. Denies foot pain.
Review of Systems: No Fever and No Chills
Vital Signs / Physical Exam
Vital Signs
Vital Signs
Temp Pulse Resp BP Pulse Ox
98.1 F 62 16 128/71 100
09/26/24 07:45 09/26/24 07:45 09/26/24 07:45 09/26/24 07:45 09/26/24 07:45
Physical Exam
Constitutional: No Acute Distress, Comfortable and Non-toxic
Eyes: Sclera Anicteric
Cardiovascular: Regular Rate and S1/S2
Pulmonary: Clear
Gastrointestinal: Soft, Non Tender and Non Distended
Wound: Other (Right foot dressing dry. Wound sub 1st met dressed. Serous drainage. )
Neurological: AO x 3
Objective Data
Lab Data
Lab Results
09/24/24 06:07
09/24/24 06:07
ESR 22 mm/hour (0-20) H 09/21/24 19:06
Estimated Creat Clear 76 ml/min 09/24/24 06:07
Lactic Acid 2.0 mmol/L (0.7-2.0) 09/22/24 02:04
Total Bilirubin 1.3 mg/dl (0.2-1.3) 09/21/24 19:06
AST 33 U/L (17-59) 09/21/24 19:06
ALT 28 U/L (0-50) 09/21/24 19:06
Alkaline Phosphatase 79 U/L (38-126) 09/21/24 19:06
C-Reactive Protein 23.30 mg/L (0.0-10.00) H 09/21/24 19:06
Most recent labs reviewed.
Micro Results:
09/23/24 13:35 Anaerobic Culture - Preliminary
Toe Culture pending. Anaerobic cultures are examined after 3
days incubation. Additional information to follow.
09/23/24 13:35 Wound Culture - Preliminary
Toe Gram Stain - Preliminary
09/21/24 22:09 Wound Culture - Final
Foot - Right Providencia rettgeri
Alcaligenes Faecalis
Enterococcus faecalis
Gram Stain - Final
09/21/24 21:15 Blood Culture - Preliminary
Blood/Venous No Growth in 4 days- Final report to follow
09/21/24 19:06 Blood Culture - Preliminary
Blood/Venous No Growth in 4 days- Final report to follow
09/22/24 02:04 MRSA Screen - Final
Nose No Methicillin Resistant Staphylococcus aureus isolated.
Imaging:
09/22/24 MRI RLE: Evidence for a soft tissue wound off the plantar and medial aspect of the first metatarsal head. There is some adjacent nonenhancing soft tissue, suggesting devascularized soft tissue in association with infection and wound.
Enhancement of the marrow of the medial sesamoid off the plantar aspect of the first metatarsal head, which likely represents osteomyelitis.
Pathology:
09/23/2024 right foot: pending
[2024-09-26 12:40] VITALS: BP 106/59; PULSE 69
--- NOTE | 2024-09-26 13:04 | W.PN.HOSP.TC ---
Today's Communication/Plan
-
Monitor vital signs see plan
Follow cultures
Continue antibiotics per infectious disease
Podiatry following
Assessment / Plan
Assessment / Plan
Gen-AAOx3, NAD
HEENT-NC, AT, anicteric, clear oral mm
Neck-supple
CV-reg, no M, +S1/S2
Lungs-clear B/L
Abd-soft, NT, ND
Ext-no edema
Musculoskeletal-no cyanosis, clubbing
Skin-warm and dry, right foot dressing intact
Neuro-grossly non-focal
Psych-calm, cooperative
Right foot 1st metatarsal skin/soft tissue infection/acute osteomyelitis - MRI notes osteomyelitis in the sesamoid bones and plantar aspect of the first metatarsal head, no abscess. No history of diabetes.
Suspect he has underlying chronic peripheral neuropathy, perhaps alcohol related. This likely predisposed him to the current infection. Of note he was hospitalized here in April 2024 with LLE purulent cellulitis.
Lower extremity NIC done April 2024 showed normal indices. No signs of aortic iliac inflow disease, no focal flow-limiting lower extremity arterial stenosis. Minimally diminished left toe brachial index suggesting the presence of mild distal small
vessel disease on the left.
Podiatry and ID following. Continue Zosyn per ID. Blood cultures negative. Wound culture from 09/21 shows gram-negative bacilli of 2 morphotypes, Enterococcus species.
Lactic acidosis due to infected foot. Resolved. Afebrile.
Patient taken to the OR 09/23 by podiatry service for excision and removal of nonviable and infected skin, soft tissue and bone, right foot. OR culture pending. Bone biopsy done, path report pending.
Nonweightbearing right foot per podiatry.
PT follow-up
Hypothyroidism -on levothyroxine. TSH normal.
History of LLE DVT -Eliquis resumed.
Chronic bilateral lower extremity venous stasis dermatitis -was using compression stockings prior to admission.
Alcohol use disorder -drinks at least 3 glasses of wine daily. Recommended abstinence. Watch for withdrawal symptoms.
Full code
PT/OT
Anticipated Discharge: 24 - 48 hours
Subjective/Interval History
-
Date of Service: September 26, 2024
Denies nausea
Objective Data
-
Vital Signs:
Vital Signs
Temp Pulse Resp BP Pulse Ox
98.1 F 62 16 128/71 100
09/26/24 07:45 09/26/24 07:45 09/26/24 07:45 09/26/24 07:45 09/26/24 07:45
I&O
09/25/24 09/26/24 09/27/24
06:59 06:59 06:59
Intake Total 1680 / 1680 680 / 680
Output Total 2275 / 2275
Balance -595 / -595 680 / 680
[2024-09-26 13:54] VITALS: BP 106/59; PULSE 69
--- NOTE | 2024-09-26 15:48 | CM ---
Reviewed the chart notes and spoke with the patient at the bedside. Per notes, waiting on final cultures. PT recommending SNF/rehab. Prior auth would be required to SNF placement. Patient will consider SNF. CM continues to be available to
patient/family and is monitoring medical plan for needs at discharge.
Plan: Discharge most likely to SNF/rehab once medically stable, bed secured, and auth obtained.
[2024-09-26 15:52] VITALS: BP 114/69
--- NOTE | 2024-09-26 18:39 | W.PN.POD ---
Today's Communication
Today's Communication
Wound is progressing well, and can be followed on an outpatient basis.
Await bone culture/path. Anticipate discharge planning.
Assessment / Plan
-
Assessment:
Cellulitis and necrotic wound of the right foot.
S/P 3 days surgical debridement of infected and non-viable tissue, w/ bone biopsy. Wound base viable/prognosis fair.
Peripheral Neuropathy
Chronic venous insufficiency
H/O DVT on Eliquis
Plan:
Cellulitis resolved, RLE
From a clinical standpoint, this wound is progressing well, and can be followed on an outpatient basis.
Consider discharge planning.
ID note appreciated. Continue IV antibiotics.
Await bone culture/path results.
Patient to remain NWB on the right foot.
Order Darco wedge shoe.
Subjective
Chief Complaint
S/P 3 days Debridement of necrotic tissue/bone biopsy, right foot.
Subjective
Denies fever, chills or sweats. No new complaints.
Objective
09/21/24 XRAYS RIGHT foot: There is irregularity with apparent fracture of the distal phalanx of the great toe. Underlying early osteomyelitis is possible. If there is high clinical suspicion for osteomyelitis an MRI may be considered for further
evaluation.
09/21/24 CT RIGHT Lower Extremity: Marked subcutaneous edema without findings to confirm subcutaneous air/gas to suggest necrotizing fasciitis.
Findings at least suspicious for soft tissue ulcer adjacent to the head of the right first metatarsal. Cannot exclude some mild cortical irregularity of the medial surface of the right metatarsal head and adjacent sesamoid bone such as
osteomyelitis. As this imaging modality is somewhat insensitive for osteomyelitis, highly recommend MRI for more complete evaluation, if clinically warranted.
09/22/24 MRI, RIGHT foot:Evidence for a soft tissue wound off the plantar and medial aspect of the first metatarsal head. There is some adjacent nonenhancing soft tissue, suggesting devascularized soft tissue in association with infection and wound.
Enhancement of the marrow of the medial sesamoid off the plantar aspect of the first metatarsal head, which likely represents osteomyelitis. No convincing evidence for another focal area of osteomyelitis.
No evidence for soft tissue abscess.
Small to moderate joint effusion involving the first metatarsophalangeal joint.
Lower extremity NIC done April of this year showed normal indices. No signs of aortic iliac inflow disease, no focal flow-limiting lower extremity arterial stenosis. Minimally diminished left toe brachial index suggesting the presence of mild
distal small vessel disease on the left.
09/21/24 Wound culture: Providencia, Alcaligenes faecalis and Enterococcus faecalis.
Temp Pulse Resp BP Pulse Ox
98.1 F 62 16 114/69 99
09/26/24 15:52 09/26/24 15:52 09/26/24 15:52 09/26/24 15:52 09/26/24 15:52
09/24/24 06:07
09/24/24 06:07
Vital Signs and Lab results were reviewed.
LE Exam:
DP pulses +2/4, bilaterally. PT pulses +1/4, bilaterally, Capillary filling time to the digits delayed.
Moderate Chronic edema of both LE's with venous stasis.
Mild serosanguineous drainage in bandage.
The cellulitis and edema of the right midfoot and forefoot has essentially resolved clinically. Capillary filling to the right great toe 1-2 seconds.
The surgical wound is clean, stable with light serosanguineous drainage. No malodor, no purulence.
Granulation progressing to cover tendon and bone.
09/23/24 Bone culture: preliminary-rare gram positive cocci. ID and path PND.
Review of Systems
Review of Systems
Review of Systems: No Fever and No Chills
[2024-09-26] MEDS: PROTONIX 40 MG PO (20:31)
[2024-09-26 23:13] VITALS: BP 110/64
[2024-09-27] MEDS: ZOSYN 50 IV ×4 (02:05→19:53)
[2024-09-27] MEDS: SYNTHROID 88 MCG PO (05:38)
[2024-09-27 07:12] LABS: Blood Urea Nitrogen 11 mg/dl (9-20); Calcium 8.2 mg/dl (8.4-10.2); Carbon Dioxide 26 mmol/L (22-30); Chloride 108 mmol/L (98-107); Estimated Creatinine Clearance 59 ml/min; Glucose 88 mg/dl (70-99); Potassium 3.6 mmol/L (3.5-5.1); Sodium 139 mmol/L (135-145); eGFR 55.78
[2024-09-27 07:18] LABS: Hematocrit 37.1 % (39.0-52.0); Hemoglobin 13.3 g/dL (13.0-18.0); Mean Corp Hgb Conc. 35.8 g/dL (33.0-37.0); Mean Corpuscular Volume 114.2 fL (80.0-94.0); Nucleated Red Blood Cells % 0 % (-); Platelet Count 108 10^3/uL (130-400); Red Cell Dist. Width 14.9 % (11.5-14.5)
[2024-09-27 07:40] VITALS: BP 116/71
--- NOTE | 2024-09-27 08:56 | W.PN.ID1 ---
Date of Service
Date of Service: September 27, 2024
Today's Communication
Continue antibiotics.
Assessment / Plan
# Right 1st metatarsal wound infection/foot cellulitis
# Suspected right medial sesamoid bone osteo by MRI
# Peripheral neuropathy
# Venous insufficiency
Recommendations:
-8/8 s/p OR excisional debridement of wound and bone biopsy
- OR cx with Providencia, Alcaligenes faecalis and Enterococcus faecalis. All isolates susceptible to Zosyn.
- Path pending.
- Continue Zosyn (d#5)
����������������������������������������������������������
Chief Complaint
-: Cellulitis (Bilateral foot infection/cellulitis with osteomyelitis great toe ) and Other (Right foot osteomyelitis)
Subjective / Review of Systems
Review of Systems: No Fever and No Chills
Vital Signs / Physical Exam
Vital Signs
Vital Signs
Temp Pulse Resp BP Pulse Ox
97.9 F 61 16 116/71 100
09/27/24 07:40 09/27/24 07:40 09/27/24 07:40 09/27/24 07:40 09/27/24 07:40
Physical Exam
Constitutional: No Acute Distress, Comfortable and Non-toxic
Eyes: Sclera Anicteric
Cardiovascular: Regular Rate and S1/S2
Pulmonary: Clear
Gastrointestinal: Soft, Non Tender and Non Distended
Wound: Other (Right foot dressing dry. Wound sub 1st met dressed.)
Neurological: AO x 3
Objective Data
Lab Data
Lab Results
09/27/24 05:58
09/27/24 05:58
ESR 22 mm/hour (0-20) H 09/21/24 19:06
Estimated Creat Clear 59 ml/min 09/27/24 05:58
Lactic Acid 2.0 mmol/L (0.7-2.0) 09/22/24 02:04
Total Bilirubin 1.3 mg/dl (0.2-1.3) 09/21/24 19:06
AST 33 U/L (17-59) 09/21/24 19:06
ALT 28 U/L (0-50) 09/21/24 19:06
Alkaline Phosphatase 79 U/L (38-126) 09/21/24 19:06
C-Reactive Protein 23.30 mg/L (0.0-10.00) H 09/21/24 19:06
Most recent labs reviewed.
Micro Results:
09/21/24 21:15 Blood Culture - Final
Blood/Venous No Growth - Final Report
09/21/24 19:06 Blood Culture - Final
Blood/Venous No Growth - Final Report
09/23/24 13:35 Anaerobic Culture - Preliminary
Toe Culture pending. Anaerobic cultures are examined after 3
days incubation. Additional information to follow.
09/23/24 13:35 Wound Culture - Preliminary
Toe Gram Stain - Preliminary
09/21/24 22:09 Wound Culture - Final
Foot - Right Providencia rettgeri
Alcaligenes Faecalis
Enterococcus faecalis
Gram Stain - Final
09/22/24 02:04 MRSA Screen - Final
Nose No Methicillin Resistant Staphylococcus aureus isolated.
Imaging:
09/22/24 MRI RLE: Evidence for a soft tissue wound off the plantar and medial aspect of the first metatarsal head. There is some adjacent nonenhancing soft tissue, suggesting devascularized soft tissue in association with infection and wound.
Enhancement of the marrow of the medial sesamoid off the plantar aspect of the first metatarsal head, which likely represents osteomyelitis.
Pathology:
09/23/2024 right foot: pending
[2024-09-27] MEDS: VITAMIN B1 100 MG PO (09:09)
[2024-09-27] MEDS: FOLVITE 1 MG PO (09:10)
[2024-09-27] MEDS: ELIQUIS 5 MG PO ×2 (09:10→19:56)
[2024-09-27 10:38] LABS: Urine Character Clear (Clear)
[2024-09-27 11:24] LABS: Body Fluid for Eosinophils No Eosinophils seen
--- NOTE | 2024-09-27 11:40 | W.PN.HOSP.TC ---
Today's Communication/Plan
-
Monitor vital signs
see plan
Continue with antibiotics
Monitor creatinine closely
Check UA, urine lytes, urine eos
Gentle hydration
Assessment / Plan
Assessment / Plan
Gen-AAOx3, NAD
HEENT-NC, AT, anicteric, clear oral mm
Neck-supple
CV-reg, no M, +S1/S2
Lungs-clear B/L
Abd-soft, NT, ND
Ext-no edema
Skin-warm and dry, right foot dressing intact
Neuro-grossly non-focal
Psych-calm, cooperative
Right foot 1st metatarsal skin/soft tissue infection/acute osteomyelitis - MRI notes osteomyelitis in the sesamoid bones and plantar aspect of the first metatarsal head, no abscess. No history of diabetes.
Suspect he has underlying chronic peripheral neuropathy, perhaps alcohol related. This likely predisposed him to the current infection. Of note he was hospitalized here in April 2024 with LLE purulent cellulitis.
Lower extremity NIC done April 2024 showed normal indices. No signs of aortic iliac inflow disease, no focal flow-limiting lower extremity arterial stenosis. Minimally diminished left toe brachial index suggesting the presence of mild distal small
vessel disease on the left.
Podiatry and ID following. Continue Zosyn per ID. Blood cultures negative. Wound culture from 09/21 shows gram-negative bacilli of 2 morphotypes, Enterococcus species.
Lactic acidosis due to infected foot. Resolved. Afebrile.
Patient taken to the OR 09/23 by podiatry service for excision and removal of nonviable and infected skin, soft tissue and bone, right foot. OR culture pending. Bone biopsy done, path report pending.
Nonweightbearing right foot per podiatry.
PT follow-up
[facility]
Check UA, urine lytes, urine eos
Did received CT scan with IV contrast on 09/21/2024
gentle hydration
Hypothyroidism -on levothyroxine. TSH normal.
History of LLE DVT -Eliquis resumed.
Chronic bilateral lower extremity venous stasis dermatitis -was using compression stockings prior to admission.
Alcohol use disorder -drinks at least 3 glasses of wine daily. Recommended abstinence. Watch for withdrawal symptoms.
Full code
PT/OT
I spent a total of 52 minutes with the patient or on the floor. More than 50% of this time involved counseling and coordination of care.
Anticipated Discharge: 24 - 48 hours
Subjective/Interval History
-
Date of Service: September 27, 2024
Denies pain
Objective Data
-
Labs:
Laboratory Results
09/27/24
05:58
WBC 5.0
Hgb 13.3
Hct 37.1 L
Plt Count 108 L D
Sodium 139
Potassium 3.6
Chloride 108 H
Carbon Dioxide 26
BUN 11
Creatinine 1.4 H
Glucose 88
Calcium 8.2 L
Vital Signs:
Vital Signs
Temp Pulse Resp BP Pulse Ox
97.9 F 61 16 116/71 100
09/27/24 07:40 09/27/24 07:40 09/27/24 07:40 09/27/24 07:40 09/27/24 07:40
I&O
09/26/24 09/27/24 09/28/24
06:59 06:59 06:59
Intake Total 680 / 680 1060 / 1060
Balance 680 / 680 1060 / 1060
[2024-09-27] MEDS: NSS 1000 IV (12:57)
[2024-09-27 15:00] VITALS: BP 115/58
--- NOTE | 2024-09-27 15:16 | CM ---
Reviewed the chart notes. Referrals sent to SNFs in the patient's area. CM continues to be available to patient/family and is monitoring medical plan for needs at discharge.
Plan: Discharge to SNF when medically stable, bed secured, and auth obtained.
[2024-09-27 23:27] VITALS: BP 118/64
[2024-09-28] MEDS: ZOSYN 50 IV ×4 (01:08→20:04)
[2024-09-28] MEDS: SYNTHROID 88 MCG PO (05:46)
[2024-09-28 07:20] VITALS: BP 119/72
[2024-09-28] MEDS: VITAMIN B1 100 MG PO (07:41)
[2024-09-28] MEDS: FOLVITE 1 MG PO (07:42)
[2024-09-28] MEDS: ELIQUIS 5 MG PO ×2 (07:42→20:04)
[2024-09-28 09:30] LABS: Hematocrit 39.7 % (39.0-52.0); Hemoglobin 13.7 g/dL (13.0-18.0); Mean Corp Hgb Conc. 34.5 g/dL (33.0-37.0); Mean Corpuscular Volume 117.5 fL (80.0-94.0); Nucleated Red Blood Cells % 0 % (-); Platelet Count 119 10^3/uL (130-400); Red Cell Dist. Width 14.9 % (11.5-14.5)
[2024-09-28 09:46] LABS: Blood Urea Nitrogen 11 mg/dl (9-20); Calcium 8.7 mg/dl (8.4-10.2); Carbon Dioxide 25 mmol/L (22-30); Chloride 110 mmol/L (98-107); Estimated Creatinine Clearance 55 ml/min; Glucose 134 mg/dl (70-99); Potassium 3.4 mmol/L (3.5-5.1); Sodium 143 mmol/L (135-145); eGFR 51.35
--- NOTE | 2024-09-28 12:06 | W.PN.HOSP.TC ---
Today's Communication/Plan
-
Monitor vital signs
see plan
Persistent elevated creatinine, nephrology evaluation
Continue with antibiotics per infectious
Monitor renal function
Assessment / Plan
Assessment / Plan
Gen-AAOx3, NAD
HEENT-NC, AT, anicteric, clear oral mm
Neck-supple
CV-reg, no M, +S1/S2
Lungs-clear B/L
Abd-soft, NT, ND
Ext-no edema
Skin-warm and dry, right foot dressing intact
Neuro-grossly non-focal
Psych-calm, cooperative
Right foot 1st metatarsal skin/soft tissue infection/acute osteomyelitis - MRI notes osteomyelitis in the sesamoid bones and plantar aspect of the first metatarsal head, no abscess. No history of diabetes.
Suspect he has underlying chronic peripheral neuropathy, perhaps alcohol related. This likely predisposed him to the current infection. Of note he was hospitalized here in April 2024 with LLE purulent cellulitis.
Lower extremity NIC done April 2024 showed normal indices. No signs of aortic iliac inflow disease, no focal flow-limiting lower extremity arterial stenosis. Minimally diminished left toe brachial index suggesting the presence of mild distal small
vessel disease on the left.
Podiatry and ID following. Continue Zosyn per ID. Blood cultures negative. Wound culture from 09/21 shows gram-negative bacilli of 2 morphotypes, Enterococcus species.
Lactic acidosis due to infected foot. Resolved. Afebrile.
Patient taken to the OR 09/23 by podiatry service for excision and removal of nonviable and infected skin, soft tissue and bone, right foot. OR culture pending. Bone biopsy done, path report pending.
Nonweightbearing right foot per podiatry.
PT follow-up
[facility]
Check UA neg for UTI, urine lytes, urine eos
Did received CT scan with IV contrast on 09/21/2024
gentle hydration
nephrology evaluation
Hypothyroidism -on levothyroxine. TSH normal.
History of LLE DVT -Eliquis resumed.
Chronic bilateral lower extremity venous stasis dermatitis -was using compression stockings prior to admission.
Alcohol use disorder -drinks at least 3 glasses of wine daily. Recommended abstinence. Watch for withdrawal symptoms.
Full code
PT/OT
Anticipated Discharge: Within 24 hours
Subjective/Interval History
-
Date of Service: September 28, 2024
Denies pain
Objective Data
-
Labs:
Laboratory Results
09/28/24
09:01
WBC 5.4
Hgb 13.7
Hct 39.7
Plt Count 119 L
Sodium 143
Potassium 3.4 L
Chloride 110 H
Carbon Dioxide 25
BUN 11
Creatinine 1.5 H
Glucose 134 H
Calcium 8.7
Vital Signs:
Vital Signs
Temp Pulse Resp BP Pulse Ox
98.1 F 58 16 119/72 98
09/28/24 07:20 09/28/24 07:20 09/28/24 07:20 09/28/24 07:20 09/28/24 08:17
I&O
09/27/24 09/28/24 09/29/24
06:59 06:59 06:59
Intake Total 1060 / 1060 3210 / 3210
Output Total 300 / 300
Balance 1060 / 1060 2910 / 2910
[2024-09-28] MEDS: KCL 20 MEQ PO (12:26)
[2024-09-28] MEDS: NSS 1000 IV (12:27)
--- NOTE | 2024-09-28 12:42 | W.PN.POD ---
Today's Communication
Today's Communication
Wound base granulating, clean and viable, right foot. Prognosis good.
Assessment / Plan
-
Assessment:
Cellulitis and necrotic wound of the right foot.
S/P 5 days surgical debridement of infected and non-viable tissue, w/ bone biopsy. Wound base granaular and viable/prognosis good.
Peripheral Neuropathy
Chronic venous insufficiency
H/O DVT on Eliquis
Recent elevated Creatinine 1.5
Plan:
Cellulitis/active infection, right foot resolved.
Anticipate Nephrology consult- elevated creatinine.
From a Podiatry standpoint, this patient can be followed on an out-patient basis.
ID note appreciated. Continue IV Zosyn. Consideration for 6 weeks IV vs PO antibiotics @ home/facility?
Wound care nursing for daily dressing changes.
Patient may ambulate as necessary in wedged surgical shoe.
Will follow in my office 10/03/24.
Subjective
Chief Complaint
S/P 5 days Debridement of deep necrotic wound, right foot.
Subjective
Patient resting comfortably. No pain. Denies fever, chills or sweats.
Objective
Patient Name: GALINA MCCOY
09/21/24 XRAYS RIGHT foot: There is irregularity with apparent fracture of the distal phalanx of the great toe. Underlying early osteomyelitis is possible. If there is high clinical suspicion for osteomyelitis an MRI may be considered for further
evaluation.
09/21/24 CT RIGHT Lower Extremity: Marked subcutaneous edema without findings to confirm subcutaneous air/gas to suggest necrotizing fasciitis.
Findings at least suspicious for soft tissue ulcer adjacent to the head of the right first metatarsal. Cannot exclude some mild cortical irregularity of the medial surface of the right metatarsal head and adjacent sesamoid bone such as
osteomyelitis. As this imaging modality is somewhat insensitive for osteomyelitis, highly recommend MRI for more complete evaluation, if clinically warranted.
09/22/24 MRI, RIGHT foot:Evidence for a soft tissue wound off the plantar and medial aspect of the first metatarsal head. There is some adjacent nonenhancing soft tissue, suggesting devascularized soft tissue in association with infection and wound.
Enhancement of the marrow of the medial sesamoid off the plantar aspect of the first metatarsal head, which likely represents osteomyelitis. No convincing evidence for another focal area of osteomyelitis.
No evidence for soft tissue abscess.
Small to moderate joint effusion involving the first metatarsophalangeal joint.
Lower extremity NIC done April of this year showed normal indices. No signs of aortic iliac inflow disease, no focal flow-limiting lower extremity arterial stenosis. Minimally diminished left toe brachial index suggesting the presence of mild
distal small vessel disease on the left.
09/21/24 Wound culture: Providencia, Alcaligenes faecalis and Enterococcus faecalis.
09/23/24 Bone culture: few WBC. Rare gram positive cocci.
Temp Pulse Resp BP Pulse Ox
98.1 F 58 16 119/72 98
09/28/24 07:20 09/28/24 07:20 09/28/24 07:20 09/28/24 07:20 09/28/24 08:17
09/28/24 09:01
09/28/24 09:01
Vital Signs and Lab results were reviewed.
LE Exam:
DP pulses +2/4, bilaterally. PT pulses +1/4, bilaterally, Capillary filling time to the digits delayed.
Moderate Chronic edema of both LE's with venous stasis.
Mild serosanguineous drainage in bandage.
The cellulitis and edema of the right midfoot and forefoot has essentially resolved clinically. Capillary filling to the right great toe 1-2 seconds.
The surgical wound is clean, stable with light serosanguineous drainage. No malodor, no purulence.
Granulation continues to progress-now with coverage of exposed tendon and bone.
--- NOTE | 2024-09-28 13:25 | WOUNDNOTE ---
WOC RN note: Patient's R medial forefoot wound full thickness and clean/pink. Dressing changed as ordered. R lateral linear ulcer dry black. Silicone border foam applied. Nursing can do patient's wound care going forward. LE edema down. Skin on
heels intact. Patient sitting in chair having lunch. Patient can move self in chair. He has his R Darco ortho wedge shoe. Plan is SNF rehab when discharged. Will follow as needed.
--- NOTE | 2024-09-28 13:25 | WOUNDNOTE ---
R PLANTAR MEDIAL FOREFOOT
--- NOTE | 2024-09-28 13:25 | WOUNDNOTE ---
R FOOT (MEDIAL PLANTAR 1ST MTH)
--- NOTE | 2024-09-28 15:00 | WOUNDNOTE ---
WOC RN note: Confirmed with Dr. Martin re: R knee high Po wrap with light compression and L knee high Tubigrip; remove compression q hs; reapply daily). Care plan and discharge instructions updated.
--- NOTE | 2024-09-28 15:03 | CM ---
Reviewed the chart notes. Unsure if patient will require IV abx at discharge. CM continues to be available to patient/family and is monitoring medical plan for needs at discharge.
Plan: Discharge to SNF once medically stable, bed secured, and auth obtained.
--- NOTE | 2024-09-28 15:04 | W.PN.ID1 ---
Date of Service
Date of Service: September 28, 2024
Today's Communication
Continue antibiotics. Await pathology.
Assessment / Plan
# Right 1st metatarsal wound infection / foot cellulitis
# Suspected right medial sesamoid bone osteo by MRI
# Peripheral neuropathy
# Venous insufficiency
Recommendations:
-8/8 s/p OR excisional debridement of wound and bone biopsy
- OR cx with Providencia, Alcaligenes faecalis and Enterococcus faecalis. All isolates susceptible to Zosyn.
- Path pending.
- Continue Zosyn (d#6)
- Follow serum creatinine closely. Elevation noted. Urine eosinophils negative.
����������������������������������������������������������
Chief Complaint
-: Cellulitis (Bilateral foot infection/cellulitis with osteomyelitis great toe ) and Other (Right foot osteomyelitis)
Subjective / Review of Systems
Review of Systems: No Fever and No Chills
Vital Signs / Physical Exam
Vital Signs
Vital Signs
Temp Pulse Resp BP Pulse Ox
98.1 F 58 16 119/72 98
09/28/24 07:20 09/28/24 07:20 09/28/24 07:20 09/28/24 07:20 09/28/24 14:54
Physical Exam
Constitutional: No Acute Distress, Comfortable and Non-toxic
Eyes: Sclera Anicteric
Cardiovascular: Regular Rate and S1/S2
Pulmonary: Clear
Gastrointestinal: Soft, Non Tender and Non Distended
Wound: Other (Right foot dressing dry. Wound sub 1st met dressed.)
Neurological: AO x 3
Objective Data
Lab Data
Lab Results
09/28/24 09:01
09/28/24 09:01
ESR 22 mm/hour (0-20) H 09/21/24 19:06
Estimated Creat Clear 55 ml/min 09/28/24 09:01
Lactic Acid 2.0 mmol/L (0.7-2.0) 09/22/24 02:04
Total Bilirubin 1.3 mg/dl (0.2-1.3) 09/21/24 19:06
AST 33 U/L (17-59) 09/21/24 19:06
ALT 28 U/L (0-50) 09/21/24 19:06
Alkaline Phosphatase 79 U/L (38-126) 09/21/24 19:06
C-Reactive Protein 23.30 mg/L (0.0-10.00) H 09/21/24 19:06
Most recent labs reviewed.
Micro Results:
09/23/24 13:35 Wound Culture - Final
Toe Gram Stain - Final
09/23/24 13:35 Anaerobic Culture - Final
Toe NO ANAEROBES ISOLATED
09/21/24 21:15 Blood Culture - Final
Blood/Venous No Growth - Final Report
09/21/24 19:06 Blood Culture - Final
Blood/Venous No Growth - Final Report
09/21/24 22:09 Wound Culture - Final
Foot - Right Providencia rettgeri
Alcaligenes Faecalis
Enterococcus faecalis
Gram Stain - Final
09/22/24 02:04 MRSA Screen - Final
Nose No Methicillin Resistant Staphylococcus aureus isolated.
Imaging:
09/22/24 MRI RLE: Evidence for a soft tissue wound off the plantar and medial aspect of the first metatarsal head. There is some adjacent nonenhancing soft tissue, suggesting devascularized soft tissue in association with infection and wound.
Enhancement of the marrow of the medial sesamoid off the plantar aspect of the first metatarsal head, which likely represents osteomyelitis.
Pathology:
09/23/2024 right foot: pending
Care Review
Plan reviewed with: Physician (Hospitalist)
[2024-09-28 15:26] VITALS: BP 107/64
--- NOTE | 2024-09-28 16:13 | W.CON.NEPH ---
Consultation
-
Date/Time Consultation Requested: 09/28/24 1037
Date/Time Consultation Performed: 09/28/24 1630
Requesting Provider: Servando Mendoza
Performing Provider: Harini Herrera
Reason for Consultation: MONCHO
Medical History
-
Chief Complaint: Cellulitis
History of Present Illness:
64-year-old male with past medical history significant for hypothyroid on Synthroid, DVT on anticoagulation with Eliquis, history of cellulitis who presents to the Emergency Department with bilateral foot swelling on 09/21. he has history of venous
insufficiency and does wear compression stockings. This time he reportedly has kept them on for about 2 weeks without taking them off while sleeping, he later noted open wound and redness with swelling of right foot when he removed socks. he
underwent CT leg with contrast concern of necrotizing infection, MRI subsequently shows osteo of sesamoid and 1st metatarsal with soft tissue infection. he was maintained on zosyn since admit. he underwent OR debridement on 09/23. his cr on admit was
at 0.6, 1.1 on 09/24 now increasing to 1.4 on 09/27 and has 1lit NS however cr up at 1.5 today hence nephrology consulted. He offer no complaints. No CP or sob, no abd pian, diarrhea or constipation. only mildly soft Bms. No dysuria. No n/v.
Past Medical History
Left Lower Extremity DVT
Hypothyroidism
Past Surgical History: Other (Tonsillectomy Hernia Repair)
Social History
Tobacco: Former Smoker (quit 40 yr ago)
Alcohol: Daily (few glasses of wine daily)
Family History
Family History: Not Pertinent
Allergies / Home Medications
Allergy/AdvReac Type Severity Reaction Status Date / Time
No Known Allergies Allergy Unverified 09/21/24 18:54
�Medication �Instructions �Recorded �Confirmed �Type
acetaminophen 325 mg tablet 650 mg PO DAILY Pain 05/06/24 09/22/24 History
(Tylenol)
apixaban 5 mg tablet (Eliquis) 5 mg PO BID Blood Clot 05/06/24 09/22/24 History
Prevention/Tx
levothyroxine 88 mcg tablet 88 mcg PO DAILY Thyroid 05/06/24 09/22/24 History
(Synthroid)
fluoxetine 20 mg capsule 20 mg PO DAILY Mental 09/22/24 09/22/24 History
Health/Anxiety
omeprazole 40 mg capsule,delayed 40 mg PO DAILY PRN 09/22/24 09/22/24 History
release Gastrointestinal Issue
Review of Systems
-
All other systems: Negative unless noted
Physical Exam
Vital Signs
Vital Signs
Temp Pulse Resp BP Pulse Ox
97.6 F 60 16 107/64 99
09/28/24 15:26 09/28/24 15:26 09/28/24 15:26 09/28/24 15:26 09/28/24 15:26
Lab Results
WBC 5.4 10^3/uL (4.8-10.8) 09/28/24 09:01
RBC 3.38 10^6/uL (4.70-6.10) L 09/28/24 09:01
Hgb 13.7 g/dL (13.0-18.0) 09/28/24 09:01
Hct 39.7 % (39.0-52.0) 09/28/24 09:01
Plt Count 119 10^3/uL (130-400) L 09/28/24 09:01
Sodium 143 mmol/L (135-145) 09/28/24 09:01
Potassium 3.4 mmol/L (3.5-5.1) L 09/28/24 09:01
Chloride 110 mmol/L (98-107) H 09/28/24 09:01
Carbon Dioxide 25 mmol/L (22-30) 09/28/24 09:01
BUN 11 mg/dl (9-20) 09/28/24 09:01
Creatinine 1.5 mg/dL (0.7-1.3) H 09/28/24 09:01
eGFR 51.35 09/28/24 09:01
Glucose 134 mg/dl (70-99) H 09/28/24 09:01
Calcium 8.7 mg/dl (8.4-10.2) 09/28/24 09:01
Albumin 4.4 g/dl (3.5-5.0) 09/21/24 19:06
Physical Exam
General: Awake, Alert, Oriented, AOx3, No Distress and Nontoxic
HEENT: Anicteric, Conjunctivae Clear, Facial Symmetry and No JVD
Respiratory: Clear, Normal Excursion and Nonlabored Respirations
Cardiac: S1/S2 and Regular Rate/Rhythm
Breast: Deferred by me
Abdomen: Soft, Nontender and Nondistended
Musculoskeletal: Other (bilat LE venous stasis changes, right foot mild edema in dressing)
Skin: No Rash
Neuro: Nonfocal/Grossly Intact
Psych: Mood/afflect pleasant, Insight/judgement good and Appropriate
Assessment/Plan
-
IMP:
Right foot 1st metatarsal skin/soft tissue infection/acute osteomyelitis
MONCHO
Hypothyroidism
History of LLE DVT -Eliquis
Chronic bilateral lower extremity venous stasis dermatitis
Alcohol use disorder
thrombocytopenia
Plan:
A/w foot cellulitis noted OM on MRI
MONCHO-increase noted since 09/24, post contrast 09/21
possible ATN vs AIN
window time os long for KEVIN but can not exclude
UA is bland and fena not low
U eosinophil neg and no eosinophilia noted
follow bladder scan and check renal US if cr still high in am
agree with gentle IVF
adjust meds dose renally
if cr cont to rise likely need to switch abx
BP stable
replace k
avoid nephrotoxins
--- NOTE | 2024-09-28 16:52 | WOUNDNOTE ---
[place] texted JENNIFER Singh requesting she check patient's sacrum and to give patient an air chair cushion. JENNIFER Singh responded he had a little redness on his bottom and she gave patient an air chair cushion. t/c SPD and ordered size E Tubigrip. JENNIFER
Samantha to give to patient.
[2024-09-28 23:15] VITALS: BP 104/60
[2024-09-29] MEDS: NSS 1000 IV ×2 (01:49→16:15)
[2024-09-29] MEDS: ZOSYN 50 IV ×4 (01:53→21:00)
[2024-09-29] MEDS: SYNTHROID 88 MCG PO (05:13)
[2024-09-29 07:38] LABS: Hematocrit 35.3 % (39.0-52.0); Hemoglobin 12.6 g/dL (13.0-18.0); Mean Corp Hgb Conc. 35.7 g/dL (33.0-37.0); Mean Corpuscular Volume 114.6 fL (80.0-94.0); Nucleated Red Blood Cells % 0 % (-); Platelet Count 101 10^3/uL (130-400); Red Cell Dist. Width 14.5 % (11.5-14.5)
[2024-09-29 07:42] VITALS: BP 113/66
[2024-09-29 07:45] LABS: Blood Urea Nitrogen 12 mg/dl (9-20); Calcium 9.1 mg/dl (8.4-10.2); Carbon Dioxide 25 mmol/L (22-30); Chloride 112 mmol/L (98-107); Estimated Creatinine Clearance 59 ml/min; Glucose 87 mg/dl (70-99); Potassium 3.7 mmol/L (3.5-5.1); Sodium 141 mmol/L (135-145); eGFR 55.78
[2024-09-29] MEDS: FOLVITE 1 MG PO (07:55)
[2024-09-29] MEDS: ELIQUIS 5 MG PO ×2 (07:55→21:00)
[2024-09-29] MEDS: VITAMIN B1 100 MG PO (07:55)
[2024-09-29 10:16] VITALS: BP 106/64; PULSE 67
--- NOTE | 2024-09-29 12:02 | W.PN.HOSP.TC ---
Today's Communication/Plan
-
Monitor vital signs and see plan
Monitor renal function
Antibiotics per infectious disease
PT
Assessment / Plan
Assessment / Plan
Gen-AAOx3, NAD
HEENT-NC, AT, anicteric, clear oral mm
Neck-supple
CV-reg, no M, +S1/S2
Lungs-clear B/L
Abd-soft, NT, ND
Ext-no edema
Skin-warm and dry, right foot dressing intact
Neuro-grossly non-focal
Psych-calm, cooperative
Right foot 1st metatarsal skin/soft tissue infection/acute osteomyelitis - MRI notes osteomyelitis in the sesamoid bones and plantar aspect of the first metatarsal head, no abscess. No history of diabetes.
Suspect he has underlying chronic peripheral neuropathy, perhaps alcohol related. This likely predisposed him to the current infection. Of note he was hospitalized here in April 2024 with LLE purulent cellulitis.
Lower extremity NIC done April 2024 showed normal indices. No signs of aortic iliac inflow disease, no focal flow-limiting lower extremity arterial stenosis. Minimally diminished left toe brachial index suggesting the presence of mild distal small
vessel disease on the left.
Podiatry and ID following. Continue Zosyn per ID. Blood cultures negative. Wound culture from 09/21 shows gram-negative bacilli of 2 morphotypes, Enterococcus species.
Lactic acidosis due to infected foot. Resolved. Afebrile.
Patient taken to the OR 09/23 by podiatry service for excision and removal of nonviable and infected skin, soft tissue and bone, right foot. OR culture mixed morena. Bone biopsy done, path without active osteo.
weight bearing per podiatry
PT follow-up
MONCHO
UA neg for UTI, urine lytes, urine eos
Did received CT scan with IV contrast on 09/21/2024 however doesnt fit in time for contrast induced
gentle hydration
nephrology following
cr 1.4 today
Hypothyroidism -on levothyroxine. TSH normal.
History of LLE DVT -Eliquis resumed.
Chronic bilateral lower extremity venous stasis dermatitis -was using compression stockings prior to admission.
Alcohol use disorder -drinks at least 3 glasses of wine daily. Recommended abstinence. Watch for withdrawal symptoms.
Full code
PT/OT
Anticipated Discharge: Within 24 hours
Subjective/Interval History
-
Date of Service: September 29, 2024
denies pain
Objective Data
-
Labs:
Laboratory Results
09/29/24
06:58
WBC 4.7 L
Hgb 12.6 L
Hct 35.3 L
Plt Count 101 L
Sodium 141
Potassium 3.7
Chloride 112 H
Carbon Dioxide 25
BUN 12
Creatinine 1.4 H
Glucose 87
Calcium 9.1
Vital Signs:
Vital Signs
Temp Pulse Resp BP Pulse Ox
98.2 F 54 18 113/66 97
09/29/24 07:42 09/29/24 07:42 09/29/24 07:42 09/29/24 07:42 09/29/24 07:42
I&O
09/28/24 09/29/24 09/30/24
06:59 06:59 06:59
Intake Total 3210 / 3210 2910 / 2910 960 / 960
Output Total 300 / 300
Balance 2910 / 2910 2910 / 2910 960 / 960
--- NOTE | 2024-09-29 13:08 | CM ---
Reviewed the chart notes and spoke with the patient at the bedside. Patient interested in returning to home with VN support. Discussed with PT working on steps with the patient since patient resides in a second floor apartment with a flight of
steps. If patient requires IV abx at discharge patient feels he can manage. CM continues to be available to patient/family and is monitoring medical plan for needs at discharge.
Plan: Discharge plans will depend on the patient's progress. If home with IV abx will need script to send to infusion company.
--- NOTE | 2024-09-29 13:44 | PN.CDI ---
CDI
- -
CDI:
Physician Documentation Request
Admit Date: 09/21/24 23:59
Dear Doctor Kal,
Clinical Indicators:
Patient admitted Right foot 1st metatarsal skin/soft tissue infection: PMH includes alcohol use disorder.
09/28 Nephrology consult, 'thrombocytopenia'
WBC, RBC, Plts:
09/29/24
06:58
WBC 4.7 L
RBC 3.08 L
Hgb 12.6 L
Plt Count 101 L
Based on the above, could you clarify in the progress notes, the appropriate diagnosis, if significant, that supports the above abnormalities and additional evaluation, monitoring and/or treatment rendered:
Pancytopenia
Thrombocytopenia only
Other, please specify
Use of terms such as suspected, likely, concern for, or probable (associated with a specific diagnosis that is being evaluated, monitored, or treated as if it exists) are acceptable and can be coded in the inpatient setting, when documented at the
time of discharge.
Thank you,
WILBERT Tejada RN
CDI Specialist
available via tiger text
Please use your independent medical judgment in providing your response.
--- NOTE | 2024-09-29 14:50 | W.PN.ID1 ---
Date of Service
Date of Service: September 29, 2024
Today's Communication
Continue Zosyn while inpatient.
Assessment / Plan
# Right 1st metatarsal wound infection / foot cellulitis
# Suspected right medial sesamoid bone osteo by MRI
# Peripheral neuropathy
# Venous insufficiency
Recommendations:
-09/23 s/p OR excisional debridement of wound and bone biopsy
- per discussion with Podiatry, no resection of sesamoid bones.
- 09/21 wound culture with Providencia, Alcaligenes faecalis and Enterococcus faecalis. All isolates susceptible to Zosyn.
- Path of first metatarsal reveals only bone with remodeling, but no evidence of osteomyelitis.
- Continue Zosyn (d#6)
- Follow serum creatinine closely. Elevation noted. Urine eosinophils negative.
Not sure if prolonged course of IV antibiotics is warranted here. I have asked Podiatry to reassess MRI and determine whether findings were addressed during prior surgery.
Ultimately, discontinuing antibiotics with close clinical follow-up and serial x-rays may be best, along with following for wound closure.
����������������������������������������������������������
Chief Complaint
-: Cellulitis (Bilateral foot infection/cellulitis with osteomyelitis great toe ) and Other (Right foot osteomyelitis (of the sesamoid))
Subjective / Review of Systems
Review of Systems: No Fever and No Chills
Vital Signs / Physical Exam
Vital Signs
Vital Signs
Temp Pulse Resp BP Pulse Ox
98.2 F 54 18 113/66 97
09/29/24 07:42 09/29/24 07:42 09/29/24 07:42 09/29/24 07:42 09/29/24 07:42
Physical Exam
Constitutional: No Acute Distress, Comfortable and Non-toxic
Eyes: Sclera Anicteric
Cardiovascular: Regular Rate and S1/S2
Pulmonary: Clear
Gastrointestinal: Soft, Non Tender and Non Distended
Wound: Other (Right foot dressing dry. Wound sub 1st met dressed. No significant strikethrough.)
Neurological: AO x 3
Objective Data
Lab Data
Lab Results
09/29/24 06:58
09/29/24 06:58
ESR 22 mm/hour (0-20) H 09/21/24 19:06
Estimated Creat Clear 59 ml/min 09/29/24 06:58
Lactic Acid 2.0 mmol/L (0.7-2.0) 09/22/24 02:04
Total Bilirubin 1.3 mg/dl (0.2-1.3) 09/21/24 19:06
AST 33 U/L (17-59) 09/21/24 19:06
ALT 28 U/L (0-50) 09/21/24 19:06
Alkaline Phosphatase 79 U/L (38-126) 09/21/24 19:06
C-Reactive Protein 23.30 mg/L (0.0-10.00) H 09/21/24 19:06
Most recent labs reviewed.
Micro Results:
09/23/24 13:35 Wound Culture - Final
Toe Gram Stain - Final
09/23/24 13:35 Anaerobic Culture - Final
Toe NO ANAEROBES ISOLATED
09/21/24 21:15 Blood Culture - Final
Blood/Venous No Growth - Final Report
09/21/24 19:06 Blood Culture - Final
Blood/Venous No Growth - Final Report
09/21/24 22:09 Wound Culture - Final
Foot - Right Providencia rettgeri
Alcaligenes Faecalis
Enterococcus faecalis
Gram Stain - Final
09/22/24 02:04 MRSA Screen - Final
Nose No Methicillin Resistant Staphylococcus aureus isolated.
Imaging:
09/22/24 MRI RLE: Evidence for a soft tissue wound off the plantar and medial aspect of the first metatarsal head. There is some adjacent nonenhancing soft tissue, suggesting devascularized soft tissue in association with infection and wound.
Enhancement of the marrow of the medial sesamoid off the plantar aspect of the first metatarsal head, which likely represents osteomyelitis.
Pathology:
09/23/2024 right foot: pending
Care Review
Plan reviewed with: Physician (Hospitalist; Podiatry)
[2024-09-29 15:17] VITALS: BP 133/65
--- NOTE | 2024-09-29 17:39 | W.PN.POD ---
Today's Communication
Today's Communication
No clinical signs of osteomyelitis. Wound is healing.
Agree with ID to discontinue antibiotics upon discharge.
Assessment / Plan
-
Assessment:
Cellulitis and necrotic wound of the right foot.
S/P 6 days surgical debridement of infected and non-viable tissue, w/ bone biopsy. Wound base granaular and viable/prognosis good.
Peripheral Neuropathy
Chronic venous insufficiency
H/O DVT on Eliquis
MONCHO-Recent elevated Creatinine coming back down.
Plan:
Cellulitis/active infection, right foot resolved. Wound is granulating over bone suggesting no clinical signs of osteomyelitis.
Nephrology note appreciated. Repeat creatinine in AM
ID note appreciated. Intra-op bone culture/path negative for osteomyelitis. .
Agree with ID to discontinue antibiotics, consider serial x-rays out-patient.
Daily dressing change orders on board.
From a Podiatry standpoint, this patient can be followed on an out-patient basis.
Patient may ambulate as necessary in wedged surgical shoe.
Will follow in my office 10/03/24.
Please reconsult as necessary.
Subjective
Chief Complaint
S/P 6 days Debridement of deep necrotic wound, right foot, bone biopsy.
Subjective
Resting comfortably. No LE pain. Denies fever, chills or sweats.
Objective
09/21/24 XRAYS RIGHT foot: There is irregularity with apparent fracture of the distal phalanx of the great toe. Underlying early osteomyelitis is possible. If there is high clinical suspicion for osteomyelitis an MRI may be considered for further
evaluation.
09/21/24 CT RIGHT Lower Extremity: Marked subcutaneous edema without findings to confirm subcutaneous air/gas to suggest necrotizing fasciitis.
Findings at least suspicious for soft tissue ulcer adjacent to the head of the right first metatarsal. Cannot exclude some mild cortical irregularity of the medial surface of the right metatarsal head and adjacent sesamoid bone such as
osteomyelitis. As this imaging modality is somewhat insensitive for osteomyelitis, highly recommend MRI for more complete evaluation, if clinically warranted.
09/22/24 MRI, RIGHT foot:Evidence for a soft tissue wound off the plantar and medial aspect of the first metatarsal head. There is some adjacent nonenhancing soft tissue, suggesting devascularized soft tissue in association with infection and wound.
Enhancement of the marrow of the medial sesamoid off the plantar aspect of the first metatarsal head, which likely represents osteomyelitis. No convincing evidence for another focal area of osteomyelitis.
No evidence for soft tissue abscess.
Small to moderate joint effusion involving the first metatarsophalangeal joint.
Lower extremity NIC done April of this year showed normal indices. No signs of aortic iliac inflow disease, no focal flow-limiting lower extremity arterial stenosis. Minimally diminished left toe brachial index suggesting the presence of mild
distal small vessel disease on the left.
09/21/24 Wound culture: Providencia, Alcaligenes faecalis and Enterococcus faecalis.
09/23/24 Bone culture: few WBC. Rare gram positive cocci.
Temp Pulse Resp BP Pulse Ox
97.7 F 59 18 133/65 100
09/29/24 15:17 09/29/24 15:17 09/29/24 15:17 09/29/24 15:17 09/29/24 15:17
09/29/24 06:58
09/29/24 06:58
Vital Signs and Lab results were reviewed.
LE Exam:
DP pulses +2/4, bilaterally. PT pulses +1/4, bilaterally, Capillary filling time to the digits delayed.
Moderate Chronic edema of both LE's with venous stasis.
Mild serosanguineous drainage in bandage.
The cellulitis and edema of the right midfoot and forefoot has essentially resolved clinically. Capillary filling to the right great toe 1-2 seconds.
The surgical wound is clean, stable without drainage. No malodor, no purulence.
Granulation continues to progress-further coverage of prior exposed tendon and bone, depth of wound filling in.
--- NOTE | 2024-09-29 18:04 | W.PN.NEPH.PH ---
Today's Communication / Plan
-
follow labs on IVF
Assessment/Plan
-
IMP:
Right foot 1st metatarsal skin/soft tissue infection/acute osteomyelitis
MONCHO
Hypothyroidism
History of LLE DVT -Eliquis
Chronic bilateral lower extremity venous stasis dermatitis
Alcohol use disorder
thrombocytopenia
Plan:
A/w foot cellulitis noted OM on MRI
MONCHO-increase noted since 09/24, post contrast 09/21
possible ATN vs AIN , cr slightly better today to 1.4
window time os long for KEVIN but can not exclude
UA is bland and fena not low
U eosinophil neg and no eosinophilia noted
follow bladder scan 17cc, US noted from 04/2024
agree with gentle IVF
adjust meds dose renally
if cr cont to rise likely need to switch abx
BP stable
avoid nephrotoxins
d/w pt
-
-
Date of Service: September 29, 2024
CC / HPI / ROS
-
Chief Complaint:
MONCHO
History of Present Illness:
cr better at 1.4
BP stable
plt 101 low
Review of Systems:
no cp or sob
no n/v
Labs
-
Labs:
WBC 4.7 10^3/uL (4.8-10.8) L 09/29/24 06:58
RBC 3.08 10^6/uL (4.70-6.10) L 09/29/24 06:58
Hgb 12.6 g/dL (13.0-18.0) L 09/29/24 06:58
Hct 35.3 % (39.0-52.0) L 09/29/24 06:58
Plt Count 101 10^3/uL (130-400) L 09/29/24 06:58
Sodium 141 mmol/L (135-145) 09/29/24 06:58
Potassium 3.7 mmol/L (3.5-5.1) 09/29/24 06:58
Chloride 112 mmol/L (98-107) H 09/29/24 06:58
Carbon Dioxide 25 mmol/L (22-30) 09/29/24 06:58
BUN 12 mg/dl (9-20) 09/29/24 06:58
Creatinine 1.4 mg/dL (0.7-1.3) H 09/29/24 06:58
eGFR 55.78 09/29/24 06:58
Glucose 87 mg/dl (70-99) 09/29/24 06:58
Calcium 9.1 mg/dl (8.4-10.2) 09/29/24 06:58
Albumin 4.4 g/dl (3.5-5.0) 09/21/24 19:06
Physical Exam
-
Vital Signs:
Vital Signs
Temp Pulse Resp BP Pulse Ox
97.7 F 59 18 133/65 100
09/29/24 15:17 09/29/24 15:17 09/29/24 15:17 09/29/24 15:17 09/29/24 15:17
Cardiovascular:: Regular rate and rhythm
Respiratory:: Bilateral: CTA
Lung Excursion:: Normal
Abdomen:: Nontender and Soft
Extremity Edema:: None: Bilateral:
Lua Catheter: No
Other Findings::
right foot in dressing
[2024-09-29 23:26] VITALS: BP 128/70
[2024-09-30] MEDS: ZOSYN 50 IV ×2 (01:38→08:45)
[2024-09-30] MEDS: SYNTHROID 88 MCG PO (06:33)
[2024-09-30 06:35] LABS: Hematocrit 35.3 % (39.0-52.0); Hemoglobin 12.4 g/dL (13.0-18.0); Mean Corp Hgb Conc. 35.1 g/dL (33.0-37.0); Mean Corpuscular Volume 115.0 fL (80.0-94.0); Nucleated Red Blood Cells % 0 % (-); Platelet Count 104 10^3/uL (130-400); Red Cell Dist. Width 14.4 % (11.5-14.5)
[2024-09-30 06:58] LABS: Blood Urea Nitrogen 12 mg/dl (9-20); Calcium 8.6 mg/dl (8.4-10.2); Carbon Dioxide 24 mmol/L (22-30); Chloride 112 mmol/L (98-107); Estimated Creatinine Clearance 59 ml/min; Glucose 85 mg/dl (70-99); Potassium 3.8 mmol/L (3.5-5.1); Sodium 140 mmol/L (135-145); eGFR 55.78
[2024-09-30] MEDS: VITAMIN B1 100 MG PO (08:45)
[2024-09-30] MEDS: FOLVITE 1 MG PO (08:45)
[2024-09-30] MEDS: ELIQUIS 5 MG PO ×2 (08:45→22:32)
[2024-09-30] MEDS: NSS 1000 IV (08:51)
[2024-09-30 08:56] VITALS: BP 127/75
--- NOTE | 2024-09-30 09:51 | W.PN.NEPH.PH ---
Today's Communication / Plan
-
Can discontinue IV fluids after current bag completed
Follow-up BMP in a.m.
Assessment/Plan
-
IMP:
Right foot 1st metatarsal skin/soft tissue infection/acute osteomyelitis
MONCHO
Hypothyroidism
History of LLE DVT -Eliquis
Chronic bilateral lower extremity venous stasis dermatitis
Alcohol use disorder
thrombocytopenia
Plan:
A/w foot cellulitis noted OM on MRI
MONCHO-increase noted since 09/24, post contrast 09/21
possible ATN vs AIN , cr unchanged today to 1.4
window time os long for KEVIN but can not exclude
UA is bland and fena not low
U eosinophil neg and no eosinophilia noted
follow bladder scan 17cc, US noted from 04/2024
Can DC IV fluids after current bag
adjust meds dose renally
if cr cont to rise likely need to switch abx
BP stable
avoid nephrotoxins
d/w pt
-
-
Date of Service: September 30, 2024
CC / HPI / ROS
-
Chief Complaint:
MONCHO
History of Present Illness:
cr unchanged at 1.4
BP stable
plt 101 low
Review of Systems:
no cp or sob
no n/v
Labs
-
Labs:
WBC 4.6 10^3/uL (4.8-10.8) L 09/30/24 06:06
RBC 3.07 10^6/uL (4.70-6.10) L 09/30/24 06:06
Hgb 12.4 g/dL (13.0-18.0) L 09/30/24 06:06
Hct 35.3 % (39.0-52.0) L 09/30/24 06:06
Plt Count 104 10^3/uL (130-400) L 09/30/24 06:06
Sodium 140 mmol/L (135-145) 09/30/24 06:06
Potassium 3.8 mmol/L (3.5-5.1) 09/30/24 06:06
Chloride 112 mmol/L (98-107) H 09/30/24 06:06
Carbon Dioxide 24 mmol/L (22-30) 09/30/24 06:06
BUN 12 mg/dl (9-20) 09/30/24 06:06
Creatinine 1.4 mg/dL (0.7-1.3) H 09/30/24 06:06
eGFR 55.78 09/30/24 06:06
Glucose 85 mg/dl (70-99) 09/30/24 06:06
Calcium 8.6 mg/dl (8.4-10.2) 09/30/24 06:06
Albumin 4.4 g/dl (3.5-5.0) 09/21/24 19:06
Physical Exam
-
Vital Signs:
Vital Signs
Temp Pulse Resp BP Pulse Ox
97.6 F 60 18 127/75 100
09/30/24 08:56 09/30/24 08:56 09/30/24 08:56 09/30/24 08:56 09/30/24 08:56
Cardiovascular:: Regular rate and rhythm
Respiratory:: Bilateral: CTA
Lung Excursion:: Normal
Abdomen:: Nontender and Soft
Extremity Edema:: None: Bilateral:
Lua Catheter: No
Other Findings::
right foot in dressing
--- NOTE | 2024-09-30 10:52 | W.PN.ID1 ---
Date of Service
Date of Service: September 30, 2024
Today's Communication
Continue antibiotics; transition to oral regimen of cefdinir and amoxicillin. See below�
Assessment / Plan
# Right 1st metatarsal wound infection / foot cellulitis
# Suspected right medial sesamoid bone osteo by MRI
# Peripheral neuropathy
# Venous insufficiency
Recommendations:
-09/23 s/p OR excisional debridement of wound and bone biopsy
- per discussion with Podiatry, no resection of sesamoid bones.
- 09/21 wound culture with Providencia, Alcaligenes faecalis and Enterococcus faecalis. All isolates susceptible to Zosyn.
- Path of first metatarsal reveals only bone with remodeling, but no evidence of osteomyelitis.
Wound overall appears quite stable.
At present, is not clear what abnormality MRI was referring to, although in discussions with Podiatry, the sesamoid bones were not removed during debridement.
I had a long discussion with the patient regarding possible paths forward, including IV antibiotics or a short course of oral antibiotics.
After weighing the risks and benefits of all the options, via shared decision making the patient has decided to pursue a short course of oral antibiotics, with close follow-up with Podiatry.
Discontinue further Zosyn.
Transition to cefdinir 300 mg BID plus amoxicillin 500 mg TID, both for an additional 5 days.
Would consider serial plain films of the foot every 3 to 4 weeks, but will defer to Podiatry.
Nothing further to add from an Infectious Diseases standpoint at present.
Will see again at your request.
����������������������������������������������������������
Chief Complaint
-: Cellulitis (Bilateral foot infection/cellulitis with osteomyelitis great toe ) and Other (Right foot osteomyelitis (of the sesamoid))
Subjective / Review of Systems
Patient seen and examined. Reports no foot pain.
Review of Systems: No Fever and No Chills
Vital Signs / Physical Exam
Vital Signs
Vital Signs
Temp Pulse Resp BP Pulse Ox
97.6 F 60 18 127/75 100
09/30/24 08:56 09/30/24 08:56 09/30/24 08:56 09/30/24 08:56 09/30/24 08:56
Physical Exam
Constitutional: No Acute Distress, Comfortable and Non-toxic
Eyes: Sclera Anicteric
Cardiovascular: Regular Rate and S1/S2
Pulmonary: Clear
Gastrointestinal: Soft, Non Tender and Non Distended
Wound: Other (Right foot dressing dry. Wound sub 1st met dressed. No significant strikethrough.)
Neurological: AO x 3
Objective Data
Lab Data
Lab Results
09/30/24 06:06
09/30/24 06:06
ESR 22 mm/hour (0-20) H 09/21/24 19:06
Estimated Creat Clear 59 ml/min 09/30/24 06:06
Lactic Acid 2.0 mmol/L (0.7-2.0) 09/22/24 02:04
Total Bilirubin 1.3 mg/dl (0.2-1.3) 09/21/24 19:06
AST 33 U/L (17-59) 09/21/24 19:06
ALT 28 U/L (0-50) 09/21/24 19:06
Alkaline Phosphatase 79 U/L (38-126) 09/21/24 19:06
C-Reactive Protein 23.30 mg/L (0.0-10.00) H 09/21/24 19:06
Most recent labs reviewed.
Micro Results:
09/23/24 13:35 Wound Culture - Final
Toe Gram Stain - Final
09/23/24 13:35 Anaerobic Culture - Final
Toe NO ANAEROBES ISOLATED
09/21/24 21:15 Blood Culture - Final
Blood/Venous No Growth - Final Report
09/21/24 19:06 Blood Culture - Final
Blood/Venous No Growth - Final Report
09/21/24 22:09 Wound Culture - Final
Foot - Right Providencia rettgeri
Alcaligenes Faecalis
Enterococcus faecalis
Gram Stain - Final
09/22/24 02:04 MRSA Screen - Final
Nose No Methicillin Resistant Staphylococcus aureus isolated.
Imaging:
09/22/24 MRI RLE: Evidence for a soft tissue wound off the plantar and medial aspect of the first metatarsal head. There is some adjacent nonenhancing soft tissue, suggesting devascularized soft tissue in association with infection and wound.
Enhancement of the marrow of the medial sesamoid off the plantar aspect of the first metatarsal head, which likely represents osteomyelitis.
Pathology:
09/23/2024 right foot: pending
Care Review
Plan reviewed with: Physician (Hospitalist)
--- NOTE | 2024-09-30 11:44 | W.PN.HOSP.TC ---
Today's Communication/Plan
-
monitor vitals
see plan
PT
monitor renal function
abx
Assessment / Plan
Assessment / Plan
Gen-AAOx3, NAD
HEENT-NC, AT, anicteric, clear oral mm
Neck-supple
CV-reg, no M, +S1/S2
Lungs-clear B/L
Abd-soft, NT, ND
Ext-no edema
Skin-warm and dry, right foot dressing intact
Neuro-grossly non-focal
Psych-calm, cooperative
Right foot 1st metatarsal skin/soft tissue infection/acute osteomyelitis - MRI notes osteomyelitis in the sesamoid bones and plantar aspect of the first metatarsal head, no abscess. No history of diabetes.
Suspect he has underlying chronic peripheral neuropathy, perhaps alcohol related. This likely predisposed him to the current infection. Of note he was hospitalized here in April 2024 with LLE purulent cellulitis.
Lower extremity NIC done April 2024 showed normal indices. No signs of aortic iliac inflow disease, no focal flow-limiting lower extremity arterial stenosis. Minimally diminished left toe brachial index suggesting the presence of mild distal small
vessel disease on the left.
Podiatry and ID following. Continue Zosyn per ID. Blood cultures negative. Wound culture from 09/21 shows gram-negative bacilli of 2 morphotypes, Enterococcus species.
Lactic acidosis due to infected foot. Resolved. Afebrile.
Patient taken to the OR 09/23 by podiatry service for excision and removal of nonviable and infected skin, soft tissue and bone, right foot. OR culture mixed morena. Bone biopsy done, path without active osteo. Discussed with infectious disease.
Likely patient will require any antibiotics on discharge. Will need serial imaging to ensure there is no osteo
weight bearing per podiatry
PT follow-up
MONCHO
UA neg for UTI, urine lytes, urine eos
Did received CT scan with IV contrast on 09/21/2024 however doesnt fit in time for contrast induced
gentle hydration
nephrology following
cr 1.4 today
pancytopenia
monitor
Hypothyroidism -on levothyroxine. TSH normal.
History of LLE DVT -Eliquis resumed.
Chronic bilateral lower extremity venous stasis dermatitis -was using compression stockings prior to admission.
Alcohol use disorder -drinks at least 3 glasses of wine daily. Recommended abstinence. Watch for withdrawal symptoms.
Full code
PT/OT
Anticipated Discharge: Within 24 hours
Subjective/Interval History
-
Date of Service: September 30, 2024
denies pain
Objective Data
-
Labs:
Laboratory Results
09/30/24
06:06
WBC 4.6 L
Hgb 12.4 L
Hct 35.3 L
Plt Count 104 L
Sodium 140
Potassium 3.8
Chloride 112 H
Carbon Dioxide 24
BUN 12
Creatinine 1.4 H
Glucose 85
Calcium 8.6
Vital Signs:
Vital Signs
Temp Pulse Resp BP Pulse Ox
97.6 F 60 18 127/75 100
09/30/24 08:56 09/30/24 08:56 09/30/24 08:56 09/30/24 08:56 09/30/24 08:56
I&O
09/29/24 09/30/24 10/01/24
06:59 06:59 06:59
Intake Total 2910 / 2910 3060 / 3060
Balance 2910 / 2910 3060 / 3060
[2024-09-30] MEDS: AMOXIL 500 MG PO ×2 (12:00→22:32)
[2024-09-30 12:27] VITALS: BP 127/63; PULSE 57
--- NOTE | 2024-09-30 12:49 | CM ---
Addendum entered by Homa Muller RN 09/30/24 15:34:
IMM reviewed.
Original Note:
Reviewed the chart notes and spoke with the patient at the bedside. Per ID, will transition on to oral abx at discharge. Discussed VN services. Patient selected [facility]. Referral sent in [facility]. CM continues to be available to patient/family
and is monitoring medical plan for needs at discharge.
Plan: Discharge to home when medically stable with [facility].
--- NOTE | 2024-09-30 14:06 | CM ---
Reviewed the chart notes and spoke with the patient at the bedside. PT/OT recommends SNF. Reviewed list with the patient. Patient agreeable to a referral being sent to [facility]. Barrier might be insurance, not all accept [employer].
Patient notified of this. CM continues to be available to patient/family and is monitoring medical plan for needs at discharge.
Plan: Discharge to SNF once bed secured and auth obtained.
[2024-09-30 15:59] VITALS: BP 116/57
[2024-09-30] MEDS: OMNICEF 300 MG PO (22:32)
[2024-09-30 23:13] VITALS: BP 120/58
[2024-10-01] MEDS: NSS IV (02:03)
[2024-10-01] MEDS: AMOXIL 500 MG PO ×2 (04:03→13:16)
[2024-10-01] MEDS: SYNTHROID 88 MCG PO (05:04)
[2024-10-01 07:46] VITALS: BP 131/71
[2024-10-01 08:25] LABS: Hematocrit 36.8 % (39.0-52.0); Hemoglobin 12.8 g/dL (13.0-18.0); Mean Corp Hgb Conc. 34.8 g/dL (33.0-37.0); Mean Corpuscular Volume 113.6 fL (80.0-94.0); Nucleated Red Blood Cells % 0 % (-); Platelet Count 114 10^3/uL (130-400); Red Cell Dist. Width 14.7 % (11.5-14.5)
[2024-10-01] MEDS: VITAMIN B1 100 MG PO (09:11)
[2024-10-01] MEDS: ELIQUIS 5 MG PO (09:11)
[2024-10-01] MEDS: OMNICEF 300 MG PO (09:11)
[2024-10-01] MEDS: FOLVITE 1 MG PO (09:11)
[2024-10-01 09:17] LABS: Blood Urea Nitrogen 10 mg/dl (9-20); Calcium 8.7 mg/dl (8.4-10.2); Carbon Dioxide 24 mmol/L (22-30); Chloride 112 mmol/L (98-107); Estimated Creatinine Clearance 69 ml/min; Glucose 86 mg/dl (70-99); Potassium 3.8 mmol/L (3.5-5.1); Sodium 141 mmol/L (135-145); eGFR > 60.00
--- NOTE | 2024-10-01 09:55 | W.PN.NEPH.PH ---
Today's Communication / Plan
-
stable for discharge from renal perspective
needs bmp next week forwarded to PCP
Assessment/Plan
-
IMP:
Right foot 1st metatarsal skin/soft tissue infection/acute osteomyelitis
MONCHO
Hypothyroidism
History of LLE DVT -Eliquis
Chronic bilateral lower extremity venous stasis dermatitis
Alcohol use disorder
thrombocytopenia
Plan:
A/w foot cellulitis noted OM on MRI
MONCHO-increase noted since 09/24, post contrast 09/21
possible ATN vs AIN , down today to 1.2, subjectively non oliguric
stable for discharge with bmp next week to PCP
window time os long for KEVIN but can not exclude
UA is bland and fena not low
U eosinophil neg and no eosinophilia noted
BP stable
avoid nephrotoxins
d/w pt
-
-
Date of Service: October 01, 2024
CC / HPI / ROS
-
Chief Complaint:
MONCHO
History of Present Illness:
cr unchanged at 1.2
BP stable
plt 101 low
Review of Systems:
no cp or sob
no n/v
Labs
-
Labs:
WBC 4.5 10^3/uL (4.8-10.8) L 10/01/24 08:02
RBC 3.24 10^6/uL (4.70-6.10) L 10/01/24 08:02
Hgb 12.8 g/dL (13.0-18.0) L 10/01/24 08:02
Hct 36.8 % (39.0-52.0) L 10/01/24 08:02
Plt Count 114 10^3/uL (130-400) L 10/01/24 08:02
Sodium 141 mmol/L (135-145) 10/01/24 08:02
Potassium 3.8 mmol/L (3.5-5.1) 10/01/24 08:02
Chloride 112 mmol/L (98-107) H 10/01/24 08:02
Carbon Dioxide 24 mmol/L (22-30) 10/01/24 08:02
BUN 10 mg/dl (9-20) 10/01/24 08:02
Creatinine 1.2 mg/dL (0.7-1.3) 10/01/24 08:02
eGFR > 60.00 10/01/24 08:02
Glucose 86 mg/dl (70-99) 10/01/24 08:02
Calcium 8.7 mg/dl (8.4-10.2) 10/01/24 08:02
Albumin 4.4 g/dl (3.5-5.0) 09/21/24 19:06
Physical Exam
-
Vital Signs:
Vital Signs
Temp Pulse Resp BP Pulse Ox
97.9 F 64 18 131/71 98
10/01/24 07:46 10/01/24 07:46 10/01/24 07:46 10/01/24 07:46 10/01/24 07:46
Cardiovascular:: Regular rate and rhythm
Respiratory:: Bilateral: CTA
Lung Excursion:: Normal
Abdomen:: Nontender and Soft
Bowel Sounds:: Normal
Extremity Edema:: +1: Bilateral:
Lua Catheter: No
--- NOTE | 2024-10-01 11:00 | W.PN.HOSP.TC ---
Today's Communication/Plan
-
Monitor vital signs
see plan
Discharge today with p.o. antibiotics
BMP outpatient with PCP next week
Time of discharge 38 minutes
Assessment / Plan
Assessment / Plan
Gen-AAOx3, NAD
HEENT-NC, AT, anicteric, clear oral mm
Neck-supple
CV-reg, no M, +S1/S2
Lungs-clear B/L
Abd-soft, NT, ND
Ext-no edema
Skin-warm and dry, right foot dressing intact
Neuro-grossly non-focal
Psych-calm, cooperative
Right foot 1st metatarsal skin/soft tissue infection/acute osteomyelitis - MRI notes osteomyelitis in the sesamoid bones and plantar aspect of the first metatarsal head, no abscess. No history of diabetes.
Suspect he has underlying chronic peripheral neuropathy, perhaps alcohol related. This likely predisposed him to the current infection. Of note he was hospitalized here in April 2024 with LLE purulent cellulitis.
Lower extremity NIC done April 2024 showed normal indices. No signs of aortic iliac inflow disease, no focal flow-limiting lower extremity arterial stenosis. Minimally diminished left toe brachial index suggesting the presence of mild distal small
vessel disease on the left.
Podiatry and ID following. Was on Zosyn, now on p.o. antibiotics per ID. Blood cultures negative. Wound culture from 09/21 shows gram-negative bacilli of 2 morphotypes, Enterococcus species.
Lactic acidosis due to infected foot. Resolved. Afebrile.
Patient taken to the OR 09/23 by podiatry service for excision and removal of nonviable and infected skin, soft tissue and bone, right foot. OR culture mixed morena. Bone biopsy done, path without active osteo. Discussed with infectious disease.
Likely patient will require any antibiotics on discharge. Will need serial imaging to ensure there is no osteo
weight bearing per podiatry
PT follow-up
MONCHO
UA neg for UTI, urine lytes, urine eos
Did received CT scan with IV contrast on 09/21/2024 however doesnt fit in time for contrast induced
nephrology following
cr 1.2 today, patient will get repeat BMP done with PCP next week
pancytopenia
monitor
Hypothyroidism -on levothyroxine. TSH normal.
History of LLE DVT -Eliquis resumed.
Chronic bilateral lower extremity venous stasis dermatitis -was using compression stockings prior to admission.
Alcohol use disorder -drinks at least 3 glasses of wine daily. Recommended abstinence. Watch for withdrawal symptoms.
Full code
PT/OT
Anticipated Discharge: Today
Subjective/Interval History
-
Date of Service: October 01, 2024
Denies pain
Objective Data
-
Labs:
Laboratory Results
10/01/24
08:02
WBC 4.5 L
Hgb 12.8 L
Hct 36.8 L
Plt Count 114 L
Sodium 141
Potassium 3.8
Chloride 112 H
Carbon Dioxide 24
BUN 10
Creatinine 1.2
Glucose 86
Calcium 8.7
Vital Signs:
Vital Signs
Temp Pulse Resp BP Pulse Ox
97.9 F 64 18 131/71 98
10/01/24 07:46 10/01/24 07:46 10/01/24 07:46 10/01/24 07:46 10/01/24 07:46
I&O
09/30/24 10/01/24 10/02/24
06:59 06:59 06:59
Intake Total 3060 / 3060 1525 / 1525
Balance 3060 / 3060 1525 / 1525
--- NOTE | 2024-10-01 11:11 | W.DCSUMMARY ---
Discharge Summary
Discharge Data
Date of Admission: 09/21/24
Date of Discharge: 10/01/24
-
Pending Results: No
Hospital Course
64-year-old male with past medical history of hypothyroidism, left lower extremity DVT, chronic bilateral lower extremity venous stasis dermatitis, alcohol use came to the hospital with right foot first metatarsal skin/soft tissue infection. MRI
also was concerning for possible osteomyelitis in the sesamoid bone. Patient was seen by podiatry and infectious disease throughout hospitalization. Patient was taken to the OR by podiatry for excision and removal of nonviable and infected skin,
soft tissue and bone. Pathology was negative for active osteomyelitis. Patient instructed to follow-up closely with podiatry for repeat scans to ensure there is no osteomyelitis. Patient was also seen by infectious disease and was initially
started on IV antibiotic which were later transitioned to p.o. antibiotics to complete the course. While in the hospital patient also developed acute kidney injury which continue to improve over time. On discharge patient instructed to get repeat
BMP done with primary care provider. Patient was also eval by physical therapy who recommended SNF however patient refused. Since his symptoms continue to improve, he was then discharged home with instructions to follow-up with all his physicians
outpatient.
Discharge Plan
-
Patient Disposition: Home with Home Care
Discharge Diagnosis/Procedures: Right first metatarsal wound infection/foot cellulitis
Suspected right medial sesamoid bone osteo by MRI
Acute kidney injury
Diet: As tolerated
Activity: With assistance and As tolerated
Driving Restrictions: As prior to admission
Bathing Restrictions: None
Blood Work: BMP next week with primary care provider
Others Tests: Repeat x-ray of foot per podiatry
Activity Restrictions/Additional Instructions:
Wound Care Instructions
R lateral foot linear ulcer-clean with saline, silicone border foam, change q 3 days and prn loosened dressing.
R medial plantar 1st MTH wound-Daily dressing changes-adaptic, saline wet to dry.
R knee high Po with light compression as tolerated (remove q hs); rewrap daily. L knee high Tubigrip as tolerated (remove q hs); reapply daily.
R heel weight bear only. Darco ortho wedge R foot.
Follow up with case preparer and liner Dr. Mik Martin.
Follow up at wound care center if needed, call for an appointment.
Referrals:
Mik Martin, DPM [[facility]ified Professional Person[facility], Podiatry] - 10/03/24
UNKNOWN - PT DOES,NOT KNOW [Family Provider] - in less than 1 week
Prescriptions:
New
amoxicillin 500 mg Capsule
500 mg PO Q8H Qty: 12 0RF
thiamine mononitrate (vit B1) 100 mg Tablet
100 mg PO DAILY Qty: 0 0RF
folic acid 1 mg Tablet
1 mg PO DAILY Qty: 0 0RF
cefdinir 300 mg Capsule
300 mg PO Q12 Qty: 8 0RF
Continued
acetaminophen [Tylenol] 325 mg Tablet
650 mg PO DAILY
levothyroxine [Synthroid] 88 mcg Tablet
88 mcg PO DAILY
Eliquis 5 mg Tablet
5 mg PO BID
Patient Comments:
05/06/24- PATIENT CURRENTLY HAVE BOTTLES FROM HIS NEIGHBOR THAT GAVE THEM TO PATIENT SINCE HE LOST HIS INSURANCE, NO ECW ABOUT START OF MED
omeprazole 40 mg Capsule,Delayed Release(Dr/Ec)
40 mg PO DAILY PRN (Reason: Gastrointestinal Issue)
fluoxetine 20 mg Capsule
20 mg PO DAILY
Discharge Orders:
Discharge Patient (As Directed); Ordered 10/01/24
Ordered By: Servando Bowden
Discharge Date and Time
Discharge Date/Time: 10/01/24 18:35
Print Language: ISRAELI
--- NOTE | 2024-10-01 12:24 | CM ---
Addendum entered by Kenzie Perlata 10/01/24 12:27:
Brother will provide transport home
Original Note:
Met with patient at bedside; reported that he does not know who will provide transport home at this time
Plan: Discharge to home with [facility]; agency notified of discharge plan via [facility]
[2024-10-01 15:25] VITALS: BP 132/67
== END 2024-10-01 18:35 | disposition home health service (06) | DRG 580 ==
LOC: 2 NORTH 23:59
PROVIDERS: Emergency Medicine; Hospitalist; ADMITTING PHYSICIAN Internal Medicine; ATTENDING PHYSICIAN Internal Medicine; CONSULT PHYSICIAN Internal Medicine; CONSULT PHYSICIAN Podiatrist Foot & Ankle Surgery; EMERGENCY PHYSICIAN Emergency Medicine; OTHER PHYSICIAN Hospitalist
PROC: 0QDN0ZZ Extraction of Right Metatarsal, Open Approach (ICD-10-PCS; 2024-09-23)
PROC: 0QBN0ZZ Excision of Right Metatarsal, Open Approach (ICD-10-PCS; 2024-09-23)
DX: L03.115 Cellulitis of right lower limb (principal); M86.171 Other acute osteomyelitis, right ankle and foot; N17.9 Acute kidney failure, unspecified; E03.9 Hypothyroidism, unspecified; I87.2 Venous insufficiency (chronic) (peripheral); Z86.718 Personal history of other venous thrombosis and embolism; Z87.891 Personal history of nicotine dependence; Z79.01 Long term (current) use of anticoagulants; Z79.890 Hormone replacement therapy; Z79.899 Other long term (current) drug therapy; D69.6 Thrombocytopenia, unspecified; F10.10 Alcohol abuse, uncomplicated; F41.9 Anxiety disorder, unspecified; G62.9 Polyneuropathy, unspecified; Z59.71 Insufficient health insurance coverage
CPT/HCPCS: 73630; 73701; 73720; 80048; 80053; 81003; 81099; 82550; 82570; 83036; 83605; 83735; 84300; 84443; 85025; 85027; 85652; 86140; 86803; 87040; 87070; 87075; 87077; 87147; 87186; 87205; 88304; 88311; 96365; 96375; 97116; 97162; 97166; 97530; 97535; 99285; A9575; Q9967